=== PATIENT | female | born 1955 | race Caucasian/White ===

== ENCOUNTER 2016-08-27 07:57 | Inpatient (IN) | payer MEDICAID ==
[~2016-08-27] VITALS: Ht 175.3 cm; Wt 91.8 kg
[~2016-08-27 07:57] MED LIST: ADVAIR HFA [SP]12 GM INH; ANORO ELLIPTA1 EACH INH; ATIVAN1 MG PO; BAYER CHEWABLE81 MG PO; BREO ELLIPTA 11 EACH INH; BUMEX 1 MG TAB1 MG PO; COREG 3.1253.125 MG PO; HYDROCODONE-APA1 TAB PO; IPRAT-ALBUT 0.5-3 ML UPD; LASIX40 MG PO; LEVAQUIN500 MG PO; LEVOTHYROXINE100 MCG; LEVOTHYROXINE100 MCG PO; MIRALAX17 GM PO; MIRAPEX1 MG PO; MYCOSTATIN 15 G15 GM TOPICAL; NEURONTIN 300300 MG PO; NITROSTAT0.4 MG SL; OMEPRAZOLE40 MG PO; PERFOROMIS20 MCG/21 INH; PHENERGAN25 M1 PO; PLAVIX75 MG PO; PRAVASTATIN SOD10 MG PO; PROAIR HFA8.5 GM INH; PROTONIX40 MG PO; RESTORIL15 MG PO; STERAPRED 5MG 125 MG PO; STERAPRED DS 1210 MG PO; SYNTHROID100 MCG PO; TESSALON PERLE100 MG PO; THEOCHRON200 MG PO; ULTRAM50 MG PO; VENTOLIN HFA18 GM INH; VOLTAREN100 GM TOPICAL; ZOFRAN4 MG PO
[2016-08-27 08:31] LABS: BASOPHILS 0.2 % (0.0-2.0); EOSINOPHILS 0 % (0-7); HEMATOCRIT 41.2 % (36.0-48.0); HEMOGLOBIN 13.2 g/dL (12-16); IMMATURE GRANULOCYTES 0.4 % (0-5); LYMPHOCYTES 9.4 % (15-50); MCH 26.3 pg (26.0-34.0); MCV 82.1 fL (80.0-100.0); MEAN PLATELET VOLUME 9.9 fL (7.4-10.4); MONOCYTES 6.4 % (2-11); NEUTROPHILS 83.6 % (40-80); PLATELET COUNT 238 10x3/uL (130-400); RBC 5.02 10x6/uL (4.00-5.40); RDW 16.3 % (11.5-14.5); WBC 11.6 10x3/uL (4.8-10.8)
[2016-08-27 08:54] LABS: INR 0.96 (0.85-1.17); PROTIME 12.6 SECONDS (11.6-15.0)
[2016-08-27 08:58] LABS: ALBUMIN 3.5 g/dL (3.4-5.0); ALKALINE PHOSPHATASE 114 U/L (46-116); ALT (SGPT) 29 U/L (10-68); BILIRUBIN - TOTAL 0.21 mg/dL (0.2-1.3); CALC OSMOLALITY 285 mosm/kg (275-300); CALCIUM 9.2 mg/dL (8.5-10.1); CARBON DIOXIDE 28.2 mmol/L (21.0-32.0); CHLORIDE - SERUM 102 mmol/L (98-107); CREATININE - SERUM 0.9 mg/dL (0.6-1.3); GLUCOSE 105 mg/dL (74-106); POTASSIUM - SERUM 4.3 mmol/L (3.5-5.1); SODIUM 140 mmol/L (136-145); UREA NITROGEN 31 mg/dL (7-18); eGFR NON AFRICAN AMERICAN 67 mL/min (90-120)
[2016-08-27 09:06] LABS: CREATINE KINASE 64 UL (21-215); PRO BNP 274 pg/mL (0-125); THEOPHYLLINE 2.2 ug/mL (10.0-20.0); TROPONIN-I < 0.017 ng/mL (0.000-0.060)
[2016-08-27 11:30] LABS: APPEARANCE CLEAR (CLEAR); BILIRUBIN NEGATIVE (NEGATIVE); COLOR YELLOW (YELLOW); GLUCOSE NEGATIVE (NEGATIVE); KETONE NEGATIVE (NEGATIVE); LEUKOCYTE ESTERASE NEGATIVE (NEGATIVE); NITRITE NEGATIVE (NEGATIVE); PROTEIN NEGATIVE (NEGATIVE); SPECIFIC GRAVITY 1.015 (1.005-1.020); UROBILINOGEN NORMAL (NORMAL)
--- NOTE | 2016-08-27 15:30 | NUR ---
Pt received to room 1220 via w/c with transporter. Pt on 2L O2 via NC. Assisted to transfer to bed. Changed to wall oxygen. Pt assisted to reposition. Assessment completed per Gavi Ward RN. Tolerated assessment well. States breathing is better since updraft treatment in ER. Reports last BM at 0300 today. Pt seems SOB after transfer. Vitals collected, stable. Pt states currently with pain 7/10 across back, chronic, and across chest, states "I think it is my lungs." Denies that it feels cardiac related, states has extensive cardiac history including 5 stents. States medication given in ER, toradol, ineffective for pain control. Dry cough noted, unproductive. Pt reports that her cough has been wet and productive, yellow, but not today. Home medication list provided per patient, reviewed and verified with patient. Confirmed last doses of medications during review. Pt denies further needs at this time. Bed low, brakes on, call light in reach. Unit phone and staff names placed on board for patient reference.
--- NOTE | 2016-08-27 15:50 | NUR ---
PIV noted to R forearm. Pt states that she has been itching since getting IV ABTx in ER and that medication burned during administration.
[2016-08-27] MEDS ORDERED: HYDROCODONE-APA1 TAB PO (17:02)
[2016-08-27] MEDS ORDERED: TESSALON PERLE100 MG PO (17:03)
[2016-08-27 17:11] VITALS: BP 138/74; Ht 175.3 cm; Wt 91.8 kg
--- NOTE | 2016-08-27 17:30 | NUR ---
PATIENT GIVEN NORCO FOR C/O LOWER BACK AND RIGHT CHESTWALL PAIN. SHE STATES THAT THE PAIN IN HER RIGHT CHESTWALL SEEMS RELATED TO HER BREATHING AND SHARPENS WITH DEEP BREATHING. SHE IS CURRENTLY SITTING UP ON THE BEDSIDE WORKING ON HER COMPUTER THAT SHE HAS PLACED ON THE BEDSIDE TABLE. SHE HAS BEEN UP AMBULATING AROUND HER ROOM AND IS WITHOUT UNSTEADINESS. DENIES ANY OTHER NEEDS AND IS GLAD TO HAVE HER SUPPER DELIVERED.
--- NOTE | 2016-08-27 17:46 | NUR ---
DR CASTRO HERE. VISITS WITH PT.
--- NOTE | 2016-08-27 17:56 | NUR ---
GER, PHARMACIST CALLS. STATES PT ALLERGIES AND PULMOCORT ORDERED. DR CASTRO ON UNIT AND NOTIFIED. STATES OK FOR PT TO HAVE PULMOCORT.
[2016-08-27 19:30] VITALS: BP 150/78
--- NOTE | 2016-08-27 19:30 | NUR ---
SHIFT ASSESSMENT AND VITAL SIGNS DONE. PT UP ADJUSTING THERMOSTAT IN ROOM. STATES "I JUST CANT GET IT COMFORTABLE". PT REPORTS PAIN AT LEVEL 7 BUT DOES NOT WANT PAIN MEDS. STATES "IT IS MAINLY WHEN I COUGH". SALINE LOCK SITE PATENT. SPO2 AT 96%. OXYGEN AT 2 L/MIN VIA NC. LUNGS CLEAR. PEDAL PULSES STRONG BILATERALLY. PT DENIES ANY PROBLEMS AMBULATING TO BATHROOM. TELEMETRY UNIT IN PLACE ON CHEST. PT STATES THAT IT WAS PUT ON WHEN SHE CAME TO THE ROOM FROM ER. FRESH ICE WATER PROVIDED PER PTS REQUEST.
--- NOTE | 2016-08-27 20:15 | NUR ---
RESPIRATORY HERE FOR MEDS/TREATMENT. REPORTS THAT PT TOLERATED WELL.
--- NOTE | 2016-08-27 21:05 | NUR ---
CALL TO TELEMETRY UNIT. TECH STATES PTS TELEMETRY IS NOT CURRENTLY WORKING. TO ROOM AND BATTERIES REPLACED. CALL BACK TO CORPORATE STRATEGY ASSOCIATE. STATES PT IS AT 82 AND SINUS RHYTHM. INFORMED PT AT THIS TIME.
--- NOTE | 2016-08-27 21:49 | NUR ---
ROUTINE 2100 MEDS GIVEN AT THIS TIME. DELAYED DUE TO WAITING ON PHARMACY TO BRING TESSLON TRINIDAD MED. PT STATES "WHAT ABOUT MY REGULAR BEDTIME MEDS? I TAKE ATIVAN AND RESTLESS LEG MEDICINE TOO". INFORMED PT THAT NURSE WILL CHECK ON THESE AND LET HER KNOW DAVID.
--- NOTE | 2016-08-27 21:58 | NUR ---
ATIVAN AND MERIPEX(RESTLESS LEG) MEDS GIVEN AT THIS TIME. PT SITTING UP IN BED ON COMPUTER WITH HEADPHONES IN PLACE. DENIES ANY REQUESTS AT THIS TIME.
--- NOTE | 2016-08-27 23:06 | NUR ---
LAB HERE TO COLLECT BLOOD CULTURE.
--- NOTE | 2016-08-27 23:48 | NUR ---
RESPIRATORY HERE FOR 2300 MEDS/TREATMENTS.
[2016-08-28 00:15] VITALS: BP 127/66
--- NOTE | 2016-08-28 00:15 | NUR ---
VITAL SIGNS DONE. NOTED THAT PT DID NOT HAVE OXYGEN/NC ON WHEN NURSE ENTERED ROOM. PT STATES SHE JUST RETURNED TO BED FROM BATHROOM AND FORGOT TO PUT IT BACK ON. REPLACED AND SPO2 AT 94% AND THEN INCREASED TO 96% WITH DEEP BREATHING. FRESH ICE WATER PROVIDED AND THERMOSTAT ADJUSTED PER PTS REQUEST. NO OTHER REQUESTS AT THIS TIME.
--- NOTE | 2016-08-28 01:42 | NUR ---
SOLUMEDROL IVP GIVEN BY Anila MOREIRA RN AT THIS TIME. PT ALERT AND AWAKE WITH NO COMPLAINTS.
--- NOTE | 2016-08-28 03:15 | NUR ---
RESPIRATORY HERE FOR MEDS/TREATMENT. STATES PT TOLERATED WITH NO DIFFICULTIES NOTED.
[2016-08-28 04:15] VITALS: BP 138/80
--- NOTE | 2016-08-28 04:15 | NUR ---
VITAL SIGNS DONE. PT SITTING UP IN BED ON COMPUTER. REQUESTS PAIN MED DUE TO BACK/CHEST PAIN AT LEVEL 7. STATES THAT PAIN IS CHRONIC TYPE PAIN. NORCO 10 GIVEN AT THIS TIME. NO OTHER REQUESTS AT THIS TIME.
--- NOTE | 2016-08-28 06:05 | NUR ---
0600 MEDS GIVEN AT THIS TIME. PT REQUESTS TO BE ALLOWED TO AMBULATE TO ER. STATES "MY SON IS BRINGING MY IN TO THE EMERGENCY ROOM BECAUSE HE IS HAVING TROUBLE BREATHING". INFORMED PT IT IS OK TO LEAVE ROOM. OFFERED TO TRANSPORT PT IN WHEELCHAIR. PT STATES "NO THANK YOU. I WANT TO TRY IT ON MY OWN". PROVIDED SLIPPER SOCKS FOR AMBULATION. REMINDED PT TO NOTIFY NURSE BEFORE SHE LEAVES UNIT AND SOON SHE RETURNS. ALSO ADVISED PT THAT IF SHE NEEDS ASSISTANCE BACK FROM ER TO HAVE ER CALL WS NURSE FOR ASSISTANCE. PT DENIES ANY SHORTNESS OF BREATH AT THIS TIME.
--- NOTE | 2016-08-28 06:19 | NUR ---
PT TO NURSES DESK. STATES SHE IS GOING TO ER NOW. DIRECTED PT TO VISITOR ELEVATOR AT THIS TIME. REMINDED PT TO HAVE ER CALL IF SHE NEEDS ASSISTANCE RETURNING TO ROOM.
--- NOTE | 2016-08-28 06:45 | NUR ---
SBAR HANDOFF RECEIVED FROM Bernard TOMAS RN. PATIENT IS IN ED VISITING WHO IS BEING ADMITTED TO HOSPITAL AND SAID TO BE CRITICAL CONDITION
[2016-08-28 07:47] LABS: BASOPHILS 0.2 % (0.0-2.0); EOSINOPHILS 0 % (0-7); HEMATOCRIT 44.9 % (36.0-48.0); HEMOGLOBIN 14.3 g/dL (12-16); IMMATURE GRANULOCYTES 0.5 % (0-5); LYMPHOCYTES 8.1 % (15-50); MCHC 31.8 g/dL (31.0-37.0); MCV 81.8 fL (80.0-100.0); MEAN PLATELET VOLUME 9.8 fL (7.4-10.4); MONOCYTES 2.5 % (2-11); NEUTROPHILS 88.7 % (40-80); RBC 5.49 10x6/uL (4.00-5.40); RDW 16.3 % (11.5-14.5)
[2016-08-28 07:58] LABS: PLATELET COUNT 286 10x3/uL (130-400)
[2016-08-28 08:00] LABS: ALBUMIN 3.7 g/dL (3.4-5.0); ANION GAP 17.4 mmol/L (8-16); BILIRUBIN - TOTAL 0.21 mg/dL (0.2-1.3); CALCIUM 9.2 mg/dL (8.5-10.1); CARBON DIOXIDE 24.1 mmol/L (21.0-32.0); POTASSIUM - SERUM 4.5 mmol/L (3.5-5.1); PROTEIN - SERUM 8.4 g/dL (6.4-8.2)
--- NOTE | 2016-08-28 08:20 | NUR ---
RETURNED FROM ED IN WHEELCHAIR. ALERT AND ORIENTED X 4. SKIN WARM DRY AND PINK. O2 OFF BUT RESUMED NOW AT 2LITERS /MIN PER NASAL CANNULA. BBS= AND CTA. NO SIGNS OF RESP DISTRESS OR OTHER DISTRESS NOTED OR REPORTED. SALINE LOCK RIGHT FOREARM INTACT WITH NO SIGNS OF COMPLICATIONS
--- NOTE | 2016-08-28 09:00 | NUR ---
TO XRAY PER WC ACCOMPANIED BY XRAY PERSONNEL
--- NOTE | 2016-08-28 09:15 | NUR ---
RETURNED FROM XRAY PER WC. NO CHANGE IN CONDITION. O2 RESUMED BEFORE. FAMILY AT BEDSIDE.
--- NOTE | 2016-08-28 09:30 | NUR ---
Spoke to Emmanuelle Wagner infection control. Advised to continue with flu swab, pt states she had a flu swab 2 days ago in an emergent care clinic that was negative.
--- NOTE | 2016-08-28 10:30 | NUR ---
Dr Gaviria seeing patient.
--- NOTE | 2016-08-28 10:45 | NUR ---
Spoke to Emmanuelle Wagner with infection control. Flu A and B are negative. Pt without symptoms other than stuffy head and c/o pollen causing. Pt states she gets this every year.
--- NOTE | 2016-08-28 10:55 | NUR ---
Explain to kal that if she left the room would have to wear a mask. Good hand washing. No visiting other patients, until discharged. Pt verblized her understanding.
--- NOTE | 2016-08-28 11:48 | NUR ---
Explain SCD to patient. "I have restless legs and they really bother me". I explained I could not force her, but they are to prevent blood clots and the MD ordered them. I explained that if she is up and walking in room she does not have to, but while in bed resting or sleeping she really needs to wear them. Pt verblized her understanding and will allow. She will call after she eats and changes clothes to allow us to place them.
[2016-08-28 11:50] VITALS: BP 128/78
--- NOTE | 2016-08-28 12:25 | NUR ---
REMAINS STABLE IN ROOM. INSTRUCTED TO STAY IN ROOM. NO SIGNS OF DISTRESS
--- NOTE | 2016-08-28 13:00 | NUR ---
SCD APPLIED BLE. REMAINS STABLE IN ROOM WITH NO SIGNS OF DISTRESS.
--- NOTE | 2016-08-28 14:10 | NUR ---
DR CASTRO IS HERE TO SEE PT. NEW ORDERS NOTED. PT DOES NOT LIKE WEARING THE SCD'S. DR CASTRO STATES TO DISCONTINUE THEM AND START HER ON LOVENOX 30 MG SQ DAILY.
--- NOTE | 2016-08-28 14:15 | NUR ---
SCD SLEEVES DISCONTINUED PER MD ORDER.
--- NOTE | 2016-08-28 14:46 | NUR ---
INITIAL DOSE LOVENOX GIVEN.
--- NOTE | 2016-08-28 15:30 | NUR ---
OFFERED SHOWER. STATES SHE WANTS TO WAIT A WHILE. NO SIGNS OF RESP DISTRESS OR OTHER DISTRESS NOTED. COUGHED AFTER BREATHING TREATMENT AND NOTED CLEAR THIN PHLEGM. STATES PHLEGM WAS THICK AND YELLOW 2 DAYS AGO BUT THEN STOPPED BEING ABLE TO COUGH ANYTHING UP.
--- NOTE | 2016-08-28 16:30 | NUR ---
SHOWERED WITH IV COVERED. SANJIV FAIR. POST O2 SAT 95% AFTER HAVING O2 OFF FOR APPROX 15 MIN.
--- NOTE | 2016-08-28 17:30 | NUR ---
REMAINS STABLE WITH NO SIGNS OF RESP DISTRESS OR OTHER DISTRESS NOTED OR REPORTED. LINENS CHANGED ON BED.
--- NOTE | 2016-08-28 18:00 | NUR ---
REMAINS STABLE WITH NO SIGNS OF RESP DISTRESS OR OTHER DISTRESS NOTED OR REPORTED.
[2016-08-28 20:15] VITALS: BP 122/56
--- NOTE | 2016-08-28 20:15 | NUR ---
SHIFT ASSESSMENT/VITAL SIGNS DONE. SALINE LOCK IN LEFT FOREARM--SITE PATENT. O2 AT 2 L/MIN VIA NC. PT DENIES SHORTNESS OF BREATH. STATES SHE HAS BEEN COUGHING UP SOME PHELGM TODAY AND HAS BEEN "STUFFY". REPORTS THAT SHE HASNT HAD A BM SINCE EARLY YESTERDAY. WANTS TO TRY PRUNE JUICE FIRST THEN WILL ASK MD FOR MED IN AM IF NO RESULT. PRUNE JUICE AND FRESH ICE WATER PROVIDED PER PTS REQUEST. NO OTHER REQUESTS/COMPLAINTS AT THIS TIME.
--- NOTE | 2016-08-28 21:20 | NUR ---
RESPIRATORY HERE. 1900 MEDS/TREATMENTS PROVIDED. PT TOLERATED WELL PER RT.
--- NOTE | 2016-08-28 21:26 | NUR ---
2100 MEDS PLUS NORCO, ATIVAN, AND MIRAPEX GIVEN AT THIS TIME. PT IN PROCESS OF RT TREATMENTS. NO REQUESTS AT THIS TIME.
--- NOTE | 2016-08-28 22:30 | NUR ---
CALL TO TELEMETRY UNIT. PT AT 113, SINUS TACHYCARDIA WITH SOME PAC'S PER TECH. PT CURRENTLY SITTING UP IN BED ON COMPUTER. NO DISTRESS NOTED.
--- NOTE | 2016-08-28 23:35 | NUR ---
RESPIRATORY HERE. MEDS/TREATMENTS DONE AT THIS TIME. PT TOLERATED WITH MINIMAL AMOUNT OF COUGHING NOTED.
[2016-08-29 00:25] VITALS: BP 119/65
--- NOTE | 2016-08-29 00:25 | NUR ---
VITAL SIGNS DONE. PT LYING ON BACK WITH HOB ELEVATED. STATES SHE HAS BEEN TRYING TO SLEEP BUT CANNOT. TURNED LIGHTS OFF AND SHUT DOOR PER PTS REQUEST. NO OTHER REQUESTS/COMPLAINTS AT THIS TIME.
--- NOTE | 2016-08-29 02:00 | NUR ---
SOLUMEDROL IVP GIVEN AT THIS TIME. FLUSHED SALINE LOCK BEFORE AND AFTER MED GIVEN. FLUSHED WITHOUT DIFFICULTY. SITE PATENT. PT SITTING UP IN BED ON COMPUTER. STATES "IM GOING TO TRY TO REST IF I CAN." DENIES ANY REQUESTS AT THIS TIME.
--- NOTE | 2016-08-29 02:40 | NUR ---
RESPIRATORY HERE FOR MEDS/TREATMENTS.
[2016-08-29 04:30] VITALS: BP 138/81
--- NOTE | 2016-08-29 04:30 | NUR ---
VITAL SIGNS DONE. PT REQUESTS PAIN MED. NORCO GIVEN AT THIS TIME. FRESH ICE WATER PROVIDED. NO OTHER COMPLAINT/REQUEST AT THIS TIME.
--- NOTE | 2016-08-29 05:37 | NUR ---
LAB HERE TO DRAW AM BLOOD/LAB TESTS.
--- NOTE | 2016-08-29 06:00 | NUR ---
0600 MEDS GIVEN AT THIS TIME. PT ASLEEP BUT EASILY AROUSED. DENIES ANY REQUESTS AT THIS TIME. WILL CALL NURSE PRN.
--- NOTE | 2016-08-29 06:08 | NUR ---
RESPIRATORY HERE. 0700 MEDS/TREATMENTS DONE AT THIS TIME.
[2016-08-29 06:45] LABS: BASOPHILS 0.2 % (0.0-2.0); EOSINOPHILS 0 % (0-7); HEMATOCRIT 38.6 % (36.0-48.0); HEMOGLOBIN 12.2 g/dL (12-16); IMMATURE GRANULOCYTES 0.5 % (0-5); LYMPHOCYTES 9.4 % (15-50); MCHC 31.6 g/dL (31.0-37.0); MCV 82.3 fL (80.0-100.0); MONOCYTES 3.4 % (2-11); NEUTROPHILS 86.5 % (40-80); PLATELET COUNT 246 10x3/uL (130-400); RBC 4.69 10x6/uL (4.00-5.40); RDW 16.4 % (11.5-14.5); WBC 14.8 10x3/uL (4.8-10.8)
[2016-08-29 07:06] LABS: ALBUMIN 3.1 g/dL (3.4-5.0); ANION GAP 11.9 mmol/L (8-16); BILIRUBIN - TOTAL 0.2 mg/dL (0.2-1.3); CALCIUM 8.8 mg/dL (8.5-10.1); CARBON DIOXIDE 27.5 mmol/L (21.0-32.0); CREATININE - SERUM 1.2 mg/dL (0.6-1.3); POTASSIUM - SERUM 4.4 mmol/L (3.5-5.1); PROTEIN - SERUM 6.8 g/dL (6.4-8.2)
--- NOTE | 2016-08-29 07:40 | NUR ---
RECEIVED IN BED. AWAKE. RESP NON-LABORED. AUSCULTATED LUNGS. ABD SOFT +BS X4 QUAD. PT C/O" MILD" PAIN. RATES AT 5/10. STATES SHE DOES NOT WANT TO TAKE PAIN MED YET AND WILL LET US KNOW WHEN NEEDED.
[2016-08-29 07:50] VITALS: BP 137/75
--- NOTE | 2016-08-29 09:48 | NUR ---
SITTING ON SIDE OF BED. WATCHING VIDEO ON COMPUTER. DENIES PROBLEMS AT THIS TIME. O2 ON AT 2 L/MIN.
--- NOTE | 2016-08-29 11:12 | NUR ---
PT RESTING ON BED. C/ O SORENESS TO TOP OF LT FOOT.
[2016-08-29] MEDS ORDERED: BROVANA15 MCG/2 M INH (11:59)
[2016-08-29] MEDS ORDERED: MUCINEX DM ER1 EAC1 PO (12:00)
[2016-08-29] MEDS ORDERED: IPRAT-ALBUT 0.5-3 ML UPD (12:00)
[2016-08-29] MEDS ORDERED: FLORAJEN3 CAPS460 MG PO (12:01)
[2016-08-29] MEDS ORDERED: STERAPRED DS 1210 MG PO (12:02)
[2016-08-29] MEDS ORDERED: LEVAQUIN750 MG PO (12:02)
--- NOTE | 2016-08-29 12:47 | NUR ---
PATIENT AMBULATING IN THE HALLWAY ON ROOM AIR. HER O2 SAT IS 86%. SHE RETURNED TO HER ROOM AND PUT ON HER O2 ON PER NC @ 2LPM AND HER SAT INCREASED TO 94% WITHIN A FEW BREATHS. CASE MANAGEMENT NOTIFIED OF THESE MEASUREMENTS. SHE STATE SHTAT THE PATIENT WILL NEED A BLOOD GAS TO QUALIFY.
[2016-08-29 14:00] VITALS: BP 143/93
--- NOTE | 2016-08-29 14:34 | NUR ---
Is the patient Alert and Oriented? Yes 0 * How many steps to enter\exit or inside your home? 0 0 * PCP DR. WILKINSON 0 * Pharmacy [facility] IN [place] 0 * Preadmission Environment Home with Family 0 * ADLs Independent 0 * Equipment Shower Chair Walker 0 * List name and contact numbers for known caregivers / representatives who currently or will assist patient after discharge: SON: SHANTEL CLEMENT [phone] 0 * Community resources currently utilized None 0 * Additional services required to return to the preadmission environment? No 0 * Can the patient safely return to the preadmission environment? Yes 0 * Has this patient been hospitalized within the prior 30 days at any hospital? No PATIENT STATES SHE LIVES AT HOME WITH HER SPOUSE, SARA CLEMENT. HE IS CURRENTLY A PATIENT IN THE HOSPITAL. PATIENT STATES SHE IS INDEPENDENT IN ALL ADL'S. PATIENT'S PCP IS DR. WILKINSON BUT SHE SEES KENY GALLARDO APN. PATIENT GETS HER MEDS FROM [facility] IN [place]. SHE STATES SHE HAS A SHOWER CHAIR AND WALKER. PATIENT HAD [employer] IN THE PAST. SHE STATES THERE ARE NO STEPS TO ENTER HER HOME. PATIENT HAD ORDER FOR O2. PATIENT HAS MEDICAID AND DID NOT QUALIFY BY [facility]G WITH PO2 60 ON ROOM AIR.
--- NOTE | 2016-08-29 15:12 | NUR ---
D/C INSTRUCTIONS GIVEN AND EXPLAINED TO PT. D/C VIA W/C. SON WITH PT. RX ELECT TRANSFERED INTO [facility]. PT RESPONDS APPROP. QUESTIONS ANSWERED.
--- NOTE | 2016-08-30 13:49 | CN ---
PATIENT NAME:MO ROBIN MEDICAL RECORD: [id number] : 55 LOCATION:[facility]1220 ADMIT DATE: 08/27/16 ACCOUNT: [id number] CONSULTING PHYSICIAN: ELIZABETH CASTRO MD REFERRING PHYSICIAN: MATT BLACKMAN MD DATE OF CONSULTATION: 08/27/2016 CONSULT REQUESTING PHYSICIAN: Matt Blackman MD REASON FOR CONSULTATION: Acute exacerbation of chronic obstructive pulmonary disease, cough, wheezing. HISTORY OF PRESENT ILLNESS: Ms. Robin is a 61-year-old female who has a history of COPD. According to the patient, her was sick and then for the last 2 days, she started coughing, wheezing and shortness of breath. She had generalized body ache and pain. The cough is productive with a white yellow colored sputum production. She was also hearing herself wheezing. The home medications were not helping. REVIEW OF SYSTEMS: CONSTITUTIONAL: She had generalized body aches and pain. HEENT: Sinus congestion. RESPIRATORY: As in history of present illness. CARDIOVASCULAR: Negative. GASTROINTESTINAL: No nausea, vomiting or diarrhea. GENITOURINARY: Negative. Other review of the systems is negative. PAST MEDICAL HISTORY: 1. COPD. 2. Obstructive sleep apnea. 3. Gastroesophageal reflux disease. 4. Hypertension. 5. Hypercholesterolemia. PAST SURGICAL HISTORY: 1. Cholecystectomy. 2. Appendectomy. 3. Hysterectomy. ALLERGIES: SHE IS ALLERGIC TO MORPHINE, OXYCODONE AND FENTANYL. PERSONAL AND SOCIAL HISTORY: The patient is . She lives with her . She is an ex-smoker. She is a nondrinker. FAMILY HISTORY: The is still everyday smoker. Family history is noncontributory. PHYSICAL EXAMINATION: GENERAL: Now, the patient is lying comfortably in bed. She is not in acute distress. VITAL SIGNS: The blood pressure 138/74, pulse is 94, respiration is 18, temperature 97.9, SPO2 of 97% on 2 liters nasal cannula oxygen. HEENT: Conjunctivae are pink. Sclerae are nonicteric. NECK: Supple, no JVD. CONSULT REPORT [id number] MO ROBIN CHEST: There is prolonged expiration with wheezing, no crackles. HEART: Rhythm regular, normal sound, no murmur. ABDOMEN: Soft, bowel sounds present. No hepatosplenomegaly. RECTAL: Deferred. EXTREMITIES: No cyanosis, no clubbing, no pedal edema. SKIN: Warm, normal turgor. CENTRAL NERVOUS SYSTEM: The patient is awake and alert. There are no obvious cranial nerve abnormality. The gait was not tested. IMPRESSION: 1. Acute exacerbation of chronic obstructive pulmonary disease. 2. Acute tracheobronchitis. 3. Acute cough. 4. History of obstructive sleep apnea. 5. Gastroesophageal reflux disease. 6. Coronary artery disease. RECOMMENDATION: 1. Continue methylprednisolone IV, continue Levaquin, albuterol/ipratropium nebulizer, and start her on Brovana and budesonide nebulizer. 2. Mucinex DM. 3. Follow up labs and chest radiograph in the morning. Dr. Blackman, once again thanks for involving me in the care of Ms. Robin. TRANSINT:[id number] Voice Confirmation ID: [id number] DOCUMENT ID: [id number] ELIZABETH CASTRO MD at 1349 CC: MATT BLACKMAN MD [id number] DICTATION DATE: 08/27/161752 ELEMENTARY SPANISH TEACHER: 08/27/16 2300 DIS IN 08/29/16 [facility] [address] [place] [address]
== END 2016-08-29 15:12 | disposition home or self-care (01) | DRG 190 ==
LOC: D.ER 07:57 → D.WS 15:10
PROVIDERS: Emergency Medicine; ADMIT Family Medicine
DX: J44.1 Chronic obstructive pulmonary disease with (acute) exacerbation (principal); J18.1 Lobar pneumonia, unspecified organism; I11.0 Hypertensive heart disease with heart failure; I50.9 Heart failure, unspecified; G47.33 Obstructive sleep apnea (adult) (pediatric); K21.9 Gastro-esophageal reflux disease without esophagitis; G89.29 Other chronic pain; M19.90 Unspecified osteoarthritis, unspecified site; J30.9 Allergic rhinitis, unspecified; E03.9 Hypothyroidism, unspecified; I25.10 Atherosclerotic heart disease of native coronary artery without angina pectoris

== ENCOUNTER 2016-11-11 15:38 | Inpatient (IN) | payer MEDICAID ==
[~2016-11-11] VITALS: Ht 175.3 cm; Wt 97.6 kg
[~2016-11-11 15:38] MED LIST changes: +BROVANA15 MCG/2 M INH; +FLORAJEN3 CAPS460 MG PO; +LEVAQUIN750 MG PO; +MUCINEX DM ER1 EAC1 PO
[2016-11-11 16:05] LABS: APPEARANCE CLEAR (CLEAR); BILIRUBIN NEGATIVE (NEGATIVE); COLOR YELLOW (YELLOW); GLUCOSE NEGATIVE (NEGATIVE); KETONE NEGATIVE (NEGATIVE); LEUKOCYTE ESTERASE NEGATIVE (NEGATIVE); NITRITE NEGATIVE (NEGATIVE); PROTEIN NEGATIVE (NEGATIVE); UROBILINOGEN NORMAL (NORMAL)
[2016-11-11 16:25] LABS: BASOPHILS 0.3 % (0-2); EOSINOPHILS 1.1 % (0-7); HEMOGLOBIN 13.1 g/dL (12-16); IMMATURE GRANULOCYTES 0.3 % (0-5); LYMPHOCYTES 17.8 % (15-50); MCH 25.8 pg (26.0-34.0); MCV 80.9 fL (80.0-100.0); MEAN PLATELET VOLUME 9.7 fL (7.4-10.4); MONOCYTES 4.6 % (2-11); NEUTROPHILS 75.9 % (40-80); PLATELET COUNT 265 10x3/uL (130-400); RBC 5.07 10x6/uL (4.00-5.40); RDW 17.5 % (11.5-14.5)
[2016-11-11 16:56] LABS: ALBUMIN 3.6 g/dL (3.4-5.0); ANION GAP 11.2 mmol/L (8-16); BILIRUBIN - TOTAL 0.29 mg/dL (0.2-1.3); CALCIUM 9.2 mg/dL (8.5-10.1); CARBON DIOXIDE 29.7 mmol/L (21.0-32.0); POTASSIUM - SERUM 3.9 mmol/L (3.5-5.1); PROTEIN - SERUM 7.7 g/dL (6.4-8.2)
[2016-11-11] MEDS ORDERED: THEOCHRON200 MG PO (20:19)
--- NOTE | 2016-11-11 20:59 | NUR ---
RECEIVED PT TO ROOM VIA STRETCHER. ALERT AND ORIENTED. C/O PAIN 01/16 TO ABD. PRN DILAUDID GIVEN. ORDERED LEVAQUIN GIVEN. ORIENTED TO ROOM AND USE OF CALL LIGHT. DENIES ANY OTHER NEEDS AT THIS TIME. BED LOW. CALL LIGHT IN REACH
[2016-11-12] VITALS: BP 122/62
--- NOTE | 2016-11-12 01:43 | NUR ---
PT C/O PAIN 03/18 TO ABD. PRN DILAUDID GIVEN ORDERED. NO OTHER NEEDS VOICED AT THIS TIME.
[2016-11-12 05:00] VITALS: BP 134/77; BMI 30.5
--- NOTE | 2016-11-12 05:19 | NUR ---
PT C/O NAUSEA. ORDER RECEIVED FOR ZOFRAN PRN. GIVEN ORDERED.
--- NOTE | 2016-11-12 07:40 | NUR ---
PATIENT RECEIVED SITTING UP ON SIDE OF BED ALERT. NO SIGNS OF DISTRESS NOTED. C/O PAIN 11/16 TO ABD. REQUESTING COFFEE. AT BEDSIDE. NO FURTHER NEEDS VOICED. SIDE RAILS UP X2. BED IN LOW POSITION. CALL LIGHT IN REACH.
[2016-11-12 09:03] VITALS: BP 107/64
[2016-11-12 10:04] LABS: BASOPHILS 0.1 % (0-2); EOSINOPHILS 0.8 % (0-7); HEMATOCRIT 37.3 % (36.0-48.0); HEMOGLOBIN 11.8 g/dL (12-16); IMMATURE GRANULOCYTES 0.3 % (0-5); MCH 25.7 pg (26.0-34.0); MCHC 31.6 g/dL (31.0-37.0); MCV 81.1 fL (80.0-100.0); MEAN PLATELET VOLUME 9.8 fL (7.4-10.4); MONOCYTES 5.3 % (2-11); NEUTROPHILS 82.5 % (40-80); PLATELET COUNT 226 10x3/uL (130-400); RDW 17.5 % (11.5-14.5); WBC 14.7 10x3/uL (4.8-10.8)
--- NOTE | 2016-11-12 10:10 | NUR ---
ALERT IN BED. NO SIGNS OF DISTRESS NOTED. C/O PAIN 01/16. DILAUDID ADMINISTERED PER PRN ORDER. WELL TOLERATED. DENIES FURTHER NEEDS. SIDE RAILS UP X2. BED IN LOW POSITION. CALL LIGHT IN REACH. FAMILY PRESENT.
[2016-11-12 10:13] LABS: ALBUMIN 2.7 g/dL (3.4-5.0); ANION GAP 10.1 mmol/L (8-16); BILIRUBIN - TOTAL 0.47 mg/dL (0.2-1.3); CALCIUM 8.3 mg/dL (8.5-10.1); POTASSIUM - SERUM 4.1 mmol/L (3.5-5.1); PROTEIN - SERUM 6.2 g/dL (6.4-8.2)
[2016-11-12 10:20] VITALS: Ht 175.3 cm; Wt 97.6 kg
--- NOTE | 2016-11-12 10:51 | NUR ---
ALERT IN BED. RATES PAIN 12/16. SCDS ON BILATERALLY. DENIES NEEDS. SIDE RAILS UP X2. BED IN LOW POSITION. CALL LIGHT IN REACH.
[2016-11-12 12:39] VITALS: BP 99/57
--- NOTE | 2016-11-12 12:59 | NUR ---
IV TO RIGHT WRIST RED AND SWOLLEN. IV D/C WITH CATH TIP INTACT. SITE COVERED WITH GAUZE AND BANDAID. PATIENT WANTS TO SHOWER FIRST THEN WILL RESITE
--- NOTE | 2016-11-12 13:47 | NUR ---
22 GAUGE IV SITED TO RIGHT FOREARM X1 ATTEMPT. FLUSHES EASY WITH BRISK BLOOD RETURN. SECURED WITH TAPE AND TEGADERM. WELL TOLERATED.
--- NOTE | 2016-11-12 14:56 | NUR ---
ALERT IN BED. RATES PAIN 12/16. SCHEDULED DILAUDID 0.5MG ADMINISTERED SLOW IVP. WELL TOLERATED. DENIES NEEDS. SIDE RAILS UP X2. BED IN LOW POSITION. CALL LIGHT IN REACH.
--- NOTE | 2016-11-12 15:08 | NUR ---
* Is the patient Alert and Oriented? Yes 0 * How many steps to enter\exit or inside your home? 0 0 * PCP [facility] 0 * [facility]acy [facility] 0 * Preadmission Environment Home with Family 0 * ADLs Independent 0 * List name and contact numbers for known caregivers / representatives who currently or will assist patient after discharge: JOSE ALFREDO ROBIN (SPOUSE) [phone] 0 * Community resources currently utilized None 0 * Additional services required to return to the preadmission environment? No 0 * Can the patient safely return to the preadmission environment? Yes 0 * Has this patient been hospitalized within the prior 30 days at any hospital? No 0 Grand Total: 0 Patient Name: MO ROBIN Admission Status: ER Accout number: [id number] Admission Date: 11-11-2016 : 1955 Admission Diagnosis: Attending: MARTHA Current LOS: 1 Anticipated DC Date: 11-14-2016 Planned Disposition: Home Primary Insurance: MEDICAID [place] Discharge Planning Comments: CM met with patient to assess discharge planning/needs. Patient currently lives at home with her (Jose Alfredo) who will drive her home. She states she is independent at home. She uses a nebulizer at home. Patient denies any HH needs at this time. CM will continue to follow and assist as needed. PCP: [facility]acy: [facility] Jose Alfredo Robin (Spouse) [phone] Traveling Phlebotomist: Jacinta Roque
--- NOTE | 2016-11-12 16:17 | NUR ---
C/O HEADACHE. TYLENOL PER PRN ORDER.
--- NOTE | 2016-11-12 17:48 | NUR ---
STATES HEADACHE IS BETTER. PAIN TO ABD /10. DILAUDID PER ORDERS. STATES NO BM. PRUNE JUICE SPRITZER PROVIDED. NO FURTHER NEEDS VOICED. SIDE RAILS UP X2. BED IN LOW POSITION. CALL LIGHT IN REACH.
[2016-11-12 20:00] VITALS: BP 131/53
--- NOTE | 2016-11-12 20:10 | NUR ---
PATIENT RESTING IN BED WITH C/O 8/10 PAIN. I EXPLAINED TO THE PATIENT THAT SHE CAN HAVE PAIN MEDICATION AGAIN AT 2100. THE PATIENT VERBALIZED UNDERSTANDING. PATIENT'S BED IS IN THE LOWEST POSITION AND CALL LIGHT WITHIN REACH. ENCOURAGED THE PATIENT TO CALL IF SHE HAS FURTHER NEEDS.
[2016-11-13 04:00] VITALS: BP 116/66
[2016-11-13 06:05] LABS: BASOPHILS 0.1 % (0-2); EOSINOPHILS 0.8 % (0-7); HEMATOCRIT 36.7 % (36.0-48.0); HEMOGLOBIN 11.4 g/dL (12-16); IMMATURE GRANULOCYTES 0.3 % (0-5); LYMPHOCYTES 13.8 % (15-50); MCH 25.5 pg (26.0-34.0); MCHC 31.1 g/dL (31.0-37.0); MCV 82.1 fL (80.0-100.0); MONOCYTES 5.6 % (2-11); NEUTROPHILS 79.4 % (40-80); PLATELET COUNT 238 10x3/uL (130-400); RBC 4.47 10x6/uL (4.00-5.40); RDW 17.6 % (11.5-14.5); WBC 11.9 10x3/uL (4.8-10.8)
[2016-11-13 06:33] LABS: ALBUMIN 2.8 g/dL (3.4-5.0); ANION GAP 9.6 mmol/L (8-16); BILIRUBIN - TOTAL 0.36 mg/dL (0.2-1.3); CALCIUM 8.6 mg/dL (8.5-10.1); CARBON DIOXIDE 29.5 mmol/L (21.0-32.0); POTASSIUM - SERUM 4.1 mmol/L (3.5-5.1); PROTEIN - SERUM 6.5 g/dL (6.4-8.2)
--- NOTE | 2016-11-13 07:00 | NUR ---
PT REC'D FROM [facility]. SITTING UP IN BED ON COMPUTER. DAUGHTER AT BEDSIDE. AAOX4. RATING CURRENT PAIN IN ABD 6/10, BUT STATES THAT SHE IS TRYING NOT TO TAKE PAIN MEDS UNLESS IT IS A 7 OR HIGHER. EXPLAINED TO PT TO NOT LET IT GET TOO HIGH OR WE'LL HAVE TO PLAY CATCH UP. BOWEL SOUNDS HYPOACTIVE X4 QUADRANTS. BED LOW, CALL LIGHT IN REACH, DENIES NEEDS. CPOC.
--- NOTE | 2016-11-13 07:45 | NUR ---
PATIENT IS AWAKE, ALERT AND ORIENTED X'S 4. RESPIRATIONS ARE EVEN AND UNLABORED. NO SIGNS OF DISTRESS NOTED. BED IN LOWEST POSITION, CALL LIGHT IN REACH. PATIENT IS SITTING ON THE SIDE OF THE BED PLAYING ON HER LAPTOP.
--- NOTE | 2016-11-13 08:49 | NUR ---
MORNING MEDS PASSED AT THIS TIME. 0.5MG OF DILAUDID ADMINISTERED PER MAR. PAIN IN ABD CURRENTLY 12/16. AT BEDSIDE. BED LOW, CALL LIGHT IN REACH, DENIES NEEDS. CPOC.
[2016-11-13 08:59] VITALS: BP 109/56
[2016-11-13 13:22] VITALS: BP 103/66
[2016-11-13 16:29] VITALS: BP 120/64
[2016-11-13 20:00] VITALS: BP 108/63
--- NOTE | 2016-11-13 20:41 | NUR ---
PATIENT RESTING IN BED AND REQUESTED ATIVAN WITH HER NIGHT MEDS. PATIENT DENIES OTHER NEEDS AT THIS TIME. BED IN LOWEST POSITION AND CALL LIGHT WITHIN REACH. ENCOURAGED THE PATIENT TO CALL IF SHE HAS FURTHER NEEDS.
[2016-11-14 04:00] VITALS: BP 104/58
[2016-11-14 05:52] LABS: BASOPHILS 0.1 % (0-2); EOSINOPHILS 2.2 % (0-7); HEMATOCRIT 36.8 % (36.0-48.0); HEMOGLOBIN 11.4 g/dL (12-16); IMMATURE GRANULOCYTES 0.4 % (0-5); LYMPHOCYTES 16.6 % (15-50); MCH 25.6 pg (26.0-34.0); MCV 82.5 fL (80.0-100.0); MEAN PLATELET VOLUME 9.9 fL (7.4-10.4); MONOCYTES 5.2 % (2-11); NEUTROPHILS 75.5 % (40-80); PLATELET COUNT 235 10x3/uL (130-400); RBC 4.46 10x6/uL (4.00-5.40); RDW 17.5 % (11.5-14.5)
[2016-11-14 06:31] LABS: ALBUMIN 2.9 g/dL (3.4-5.0); ANION GAP 11.8 mmol/L (8-16); BILIRUBIN - TOTAL 0.4 mg/dL (0.2-1.3); CALCIUM 8.8 mg/dL (8.5-10.1); CARBON DIOXIDE 29.6 mmol/L (21.0-32.0); POTASSIUM - SERUM 4.4 mmol/L (3.5-5.1); PROTEIN - SERUM 6.6 g/dL (6.4-8.2)
--- NOTE | 2016-11-14 07:30 | NUR ---
PATIENT IS SITTING UP IN HER BED. PATIENT IS AWAKE, ALERT, AND ORIENTED X4. PATIENT CURRENTLY RECEIVING A BREATHING TREATMENT WITH RT IN HER ROOM. PATIENT RATES HER PAIN LEVEL A "5" ON A 0-10 SCALE. PATIENT DENEIS ANY NAUSEA OR VOMITING AT PRESENT TIME. IV SITE PATENT WITHOUT ANY S/S OF INFECTION IN PATIENT'S RIGHT FOREARM. SCD'S IN USE TO PATIENT'S BILATERAL LOWER EXTREMITIES. PATIENT DENIES ANY NEEDS AT PRESENT TIME. CALL LIGHT IN PATIENT'S REACH. WILL MONITOR PATIENT.
[2016-11-14 08:08] VITALS: BP 79/47
--- NOTE | 2016-11-14 08:35 | NUR ---
PT STATED HER BLOOD PRESSURE WAS LOW THIS AM, "MY BLOOD PRESSURE WAS IN THE 70'S OVER THE 40'S AND I FEEL SLEEPY AND GROGGY." RECHECKED AND GOT NEW BP OF 117/56. PT IS AAOX4. WITH CURRENT PAIN LEVEL OF 8/10 IN HER ABD. WILL REASSES AFTER GIVING SCHEDULED DILAUDID PER AUG.
[2016-11-14 12:25] VITALS: BP 110/62
--- NOTE | 2016-11-14 12:46 | NUR ---
NUTRITION MONITORING & EVAL CHART REVIEWED, PT VISIT. DIET NOW CLEAR LIQUID. WILL PROVIDE CURRENT DIET, MONITOR ADVANCEMENT. RD FOLLOWING
[2016-11-14 16:59] VITALS: BP 118/66
[2016-11-14 20:00] VITALS: BP 133/70
--- NOTE | 2016-11-14 20:00 | NUR ---
ASSESSMENT COMPLETED, NO ACUTE DISTRESS NOTED, SPOUSE IN ROOM, R FA IV SALINE LOCKED, REFUSES SCD'S, SR'S UP, CL IN REACH, WILL MONITOR
--- NOTE | 2016-11-14 22:02 | NUR ---
SITTING UP IN BED ON COMPUTER, DENIES NEEDS, SR'S UP, CL IN REACH
--- NOTE | 2016-11-15 00:04 | NUR ---
SCHEDULED DILAUDID GIVEN, RATES PAIN 8/10, SANJIV WELL, CL IN REACH
[2016-11-15 04:00] VITALS: BP 97/55
[2016-11-15 05:58] LABS: BASOPHILS 0.2 % (0-2); EOSINOPHILS 2.4 % (0-7); HEMATOCRIT 37.2 % (36.0-48.0); HEMOGLOBIN 11.5 g/dL (12-16); IMMATURE GRANULOCYTES 0.2 % (0-5); LYMPHOCYTES 14.4 % (15-50); MCH 25.7 pg (26.0-34.0); MCHC 30.9 g/dL (31.0-37.0); MONOCYTES 4.7 % (2-11); NEUTROPHILS 78.1 % (40-80); PLATELET COUNT 259 10x3/uL (130-400); RBC 4.48 10x6/uL (4.00-5.40); RDW 17.7 % (11.5-14.5); WBC 10.5 10x3/uL (4.8-10.8)
[2016-11-15 07:08] LABS: ALBUMIN 2.8 g/dL (3.4-5.0); ANION GAP 11.9 mmol/L (8-16); BILIRUBIN - TOTAL 0.2 mg/dL (0.2-1.3); CALCIUM 8.9 mg/dL (8.5-10.1); CARBON DIOXIDE 29.6 mmol/L (21.0-32.0); POTASSIUM - SERUM 4.5 mmol/L (3.5-5.1); PROTEIN - SERUM 6.4 g/dL (6.4-8.2)
--- NOTE | 2016-11-15 07:20 | NUR ---
PATIENT RECEIVED UP AMBULATING IN ROOM WITHOUT ASSIST. NO SIGNS OF DISTRESS NOTED. FAMILY AT BEDSIDE. DENIES NEEDS.
--- NOTE | 2016-11-15 08:07 | NUR ---
PATIENT SITTING UP ON SIDE OF BED ALERT. NO SIGNS OF DISTRESS NOTED. SCHEDULED MEDICATION ADMINISTERED WELL PRN ZOFRAN. IV TO RIGHT FOREARM PATENT. NO INFLAMMATION OR REDNESS NOTED. SIDE RAILS UP X2. BED IN LOW POSITION. CALL LIGHT IN REACH.
[2016-11-15 08:16] VITALS: BP 116/63
--- NOTE | 2016-11-15 10:00 | NUR ---
ALERT IN BED. CONTINUE TO C/O NAUSEA. IM PHENERGAN PER PRN ORDER. NO FURTHER NEEDS VOICED. SIDE RAILS UP X2. BED IN LOW POSITION. CALL LIGHT IN REACH.
--- NOTE | 2016-11-15 12:08 | NUR ---
SITTING UP ON SIDE OF BED ALERT. NO SIGNS OF DISTRESS NOTED. SCHEDULED MEDICATION ADMINISTERED. WANTING TO GO HOME. BED IN LOW POSITION. CALL LIGHT IN REACH. AT BEDSIDE.
[2016-11-15 12:37] VITALS: BP 91/49
--- NOTE | 2016-11-15 16:00 | NUR ---
SITTING UP ON SIDE OF BED ALERT. NO SIGNS OF DISTRESS NOTED. SCHEDULED DILAUDID ADMINISTERED. DENIES NEEDS. SIDE RAILS UP X2. BED IN LOW POSITION. CALL LIGHT IN REACH.
[2016-11-15 16:48] VITALS: BP 110/64
[2016-11-15 20:00] VITALS: BP 111/57
--- NOTE | 2016-11-15 20:20 | NUR ---
PATIENT RESTING IN BED ON THE PHONE AND REQUESTED PAIN MEDICATION. BED IN LOWEST POSITION AND CALL LIGHT WITHIN REACH. ENCOURAGED THE PATIENT TO CALL IF SHE HAS FURTHER NEEDS.
[2016-11-16] VITALS: BP 126/60
[2016-11-16] MEDS ORDERED: BUMEX 1 MG TAB1 MG PO (02:11)
[2016-11-16 04:00] VITALS: BP 131/56
[2016-11-16 06:52] LABS: BASOPHILS 0.2 % (0-2); EOSINOPHILS 3.8 % (0-7); HEMATOCRIT 36.4 % (36.0-48.0); HEMOGLOBIN 11.2 g/dL (12-16); IMMATURE GRANULOCYTES 0.3 % (0-5); MCH 25.6 pg (26.0-34.0); MCHC 30.8 g/dL (31.0-37.0); MCV 83.3 fL (80.0-100.0); MEAN PLATELET VOLUME 9.8 fL (7.4-10.4); MONOCYTES 5.2 % (2-11); NEUTROPHILS 73.5 % (40-80); PLATELET COUNT 273 10x3/uL (130-400); RBC 4.37 10x6/uL (4.00-5.40); RDW 17.9 % (11.5-14.5); WBC 10.5 10x3/uL (4.8-10.8)
[2016-11-16 07:06] LABS: ALBUMIN 2.9 g/dL (3.4-5.0); ANION GAP 7.4 mmol/L (8-16); BILIRUBIN - TOTAL 0.2 mg/dL (0.2-1.3); CALCIUM 8.5 mg/dL (8.5-10.1); CARBON DIOXIDE 32.8 mmol/L (21.0-32.0); POTASSIUM - SERUM 4.2 mmol/L (3.5-5.1); PROTEIN - SERUM 6.4 g/dL (6.4-8.2)
--- NOTE | 2016-11-16 07:20 | NUR ---
PATIENT RECEIVED SITTING UP IN BED ALERT. NO SIGNS OF DISTRESS NOTED. C/O PAIN 01/16. FAMILY AT BEDSIDE. SIDE RAILS UP X2. BED IN LOW POSITION. CALL LIGHT IN REACH.
--- NOTE | 2016-11-16 08:24 | NUR ---
ALERT IN BED. NO SIGNS OF DISTRESS NOTED. SCHEDULED MEDICATION ADMINISTERED. SIDE RAILS UP X2. BED IN LOW POSITION. CALL LIGHT IN REACH. DENIES NEEDS.
[2016-11-16 08:38] VITALS: BP 112/51
--- NOTE | 2016-11-16 10:49 | NUR ---
SITTING UP ON SIDE OF BED ALERT. NO SIGNS OF DISTRESS NOTED. WANTING TO GO HOME. STATES SHE DID OKAY WITH BREAKFAST. DENIES NAUSEA. SIDE RAILS UP X1. BED IN LOW POSITION. CALL MALIK CARVALHO. FAMILY PRESENT.
[2016-11-16] MEDS ORDERED: Levaquin PO (12:06)
[2016-11-16] MEDS ORDERED: FLAGYL500 MG PO (12:07)
[2016-11-16] MEDS ORDERED: ZOFRAN4 MG PO (12:08)
[2016-11-16] MEDS ORDERED: HYDROCODONE-APA1 TAB PO (12:09)
[2016-11-16 12:13] VITALS: BP 96/77
--- NOTE | 2016-11-16 13:55 | NUR ---
PATIENT SITTING UP ON SIDE OF BED ALERT. DENIES NAUSEA, BUT STATES ABDOMINAL PAIN IS WORSE AND SHE DOESN'T BELIEVE SHE NEEDS TO GO HOME TODAY. DR TRAN NOTIFIED. ORDER TO HOLD D/C AND NEW MEDICATION ORDERS RECEIVED.
--- NOTE | 2016-11-16 14:22 | NUR ---
SITTING UP ON SIDE OF BED ALERT WITH FAMILY PRESENT. NORCO AND MOM GIVEN PER PRN ORDER. NO FURTHER NEEDS VOICED. BED IN LOW POSITION. CALL LIGHT IN REACH.
[2016-11-16 20:00] VITALS: BP 99/50
[2016-11-17] VITALS: BP 95/54
[2016-11-17 04:00] VITALS: BP 119/61
[2016-11-17 05:07] LABS: BASOPHILS 0.2 % (0-2); HEMATOCRIT 37.8 % (36.0-48.0); HEMOGLOBIN 11.6 g/dL (12-16); IMMATURE GRANULOCYTES 0.4 % (0-5); LYMPHOCYTES 19.5 % (15-50); MCH 25.4 pg (26.0-34.0); MCHC 30.7 g/dL (31.0-37.0); MCV 82.7 fL (80.0-100.0); MEAN PLATELET VOLUME 9.6 fL (7.4-10.4); MONOCYTES 5.1 % (2-11); NEUTROPHILS 71.8 % (40-80); PLATELET COUNT 273 10x3/uL (130-400); RBC 4.57 10x6/uL (4.00-5.40); RDW 17.9 % (11.5-14.5); WBC 9.3 10x3/uL (4.8-10.8)
[2016-11-17 05:27] LABS: ANION GAP 7.4 mmol/L (8-16); BILIRUBIN - TOTAL 0.2 mg/dL (0.2-1.3); CALCIUM 8.7 mg/dL (8.5-10.1); CARBON DIOXIDE 34.2 mmol/L (21.0-32.0); CREATININE - SERUM 1.3 mg/dL (0.6-1.3); POTASSIUM - SERUM 3.6 mmol/L (3.5-5.1); PROTEIN - SERUM 6.6 g/dL (6.4-8.2)
--- NOTE | 2016-11-17 07:20 | NUR ---
PATIENT RECEIVED UP AMBULATING IN ROOM. NO SIGNS OF DISTRESS NOTED. READY TO D/C HOME. DENIES NEEDS. CALL LIGHT IN REACH. BED IN LOW POSITION.
[2016-11-17 07:50] VITALS: BP 106/77
--- NOTE | 2016-11-17 08:00 | NUR ---
D/C TEACHING PROVIDED AND PAPER PRESCRIPTION PROVIDED. IV D/C WITH CATH TIP INTACT. SITE COVERED WITH GAUZE AND BANDAID. AMBULATED OFF UNIT WITH STAFF AND
== END 2016-11-17 08:10 | disposition home or self-care (01) | DRG 392 ==
LOC: D.ER 15:38 → D.MS 18:38
PROVIDERS: Emergency Medicine; ADMIT Family Medicine
DX: K57.92 Diverticulitis of intestine, part unspecified, without perforation or abscess without bleeding (principal); J44.9 Chronic obstructive pulmonary disease, unspecified; I25.10 Atherosclerotic heart disease of native coronary artery without angina pectoris; I10 Essential (primary) hypertension; G89.29 Other chronic pain; M19.90 Unspecified osteoarthritis, unspecified site; E03.9 Hypothyroidism, unspecified; M79.7 Fibromyalgia; I50.9 Heart failure, unspecified; Z95.5 Presence of coronary angioplasty implant and graft; F32.9 Major depressive disorder, single episode, unspecified; F41.9 Anxiety disorder, unspecified; Z87.891 Personal history of nicotine dependence

== ENCOUNTER → 2016-12-24 09:31 | Outpatient (CLI) | payer MEDICAID ==
[2016-11-12 10:20] VITALS: BMI 30.4
[~2016-12-24 09:31] MED LIST changes: +FLAGYL500 MG PO; +Levaquin PO
== END | disposition home or self-care (01) ==
LOC: D.MRI 09:31
DX: M25.561 Pain in right knee (principal); M25.562 Pain in left knee

== ENCOUNTER → 2016-12-31 11:15 | Outpatient (CLI) | payer MEDICAID ==
[2016-11-12 10:20] VITALS: BMI 30.4
== END | disposition home or self-care (01) ==
LOC: D.LABREF 11:15
DX: M17.11 Unilateral primary osteoarthritis, right knee (principal); Z11.8 Encounter for screening for other infectious and parasitic diseases

== ENCOUNTER → 2017-11-13 10:26 | Outpatient (CLI) | payer MEDICAID ==
[2016-11-12 10:20] VITALS: BMI 30.4
== END | disposition home or self-care (01) ==
LOC: D.RT 10:26
DX: J44.9 Chronic obstructive pulmonary disease, unspecified (principal)

== ENCOUNTER 2017-11-21 14:02 | Outpatient (CLI) | payer MEDICAID ==
[2016-11-12 10:20] VITALS: BMI 30.4
== END 2017-11-21 23:59 | disposition home or self-care (01) ==
LOC: D.MAMMO 14:02
DX: Z12.31 Encounter for screening mammogram for malignant neoplasm of breast (principal)

== ENCOUNTER → 2018-04-29 08:41 | Outpatient (CLI) | payer BC, MEDICAID ==
[2016-11-12 10:20] VITALS: BMI 30.4
== END | disposition home or self-care (01) ==
LOC: D.HCCARDIO 08:41
DX: I25.10 Atherosclerotic heart disease of native coronary artery without angina pectoris (principal)

== ENCOUNTER 2018-05-06 17:57 | Observation (INO) | payer MEDICAID ==
[~2018-05-06] VITALS: Ht 175.3 cm; Wt 83.6 kg
--- NOTE | ~2018-05-06 | HP ---
PATIENT: MO ROBIN MEDICAL RECORD: [id number] ACCOUNT: [id number] [facility] 55 ADMISSION DATE: 05/06/18 PCP: PAVITHRA WILKINSON MD HISTORY AND PHYSICAL EXAMINATION DIAGNOSES: 1. Unstable angina. 2. Chronic obstructive pulmonary disease. 3. Smoking. HISTORY OF PRESENT ILLNESS: Mrs. Robin has been having increasing episodes of chest pain. She was seen in our office. She had nuclear stress test. This was abnormal. She was being set for catheterization. She presents with increasing chest pain. Her troponin is normal, but she continues to have the episodes of chest pain. PHYSICAL EXAMINATION: GENERAL APPEARANCE: Well-nourished, well-developed, appears stated age. Level of distress, comfortable. PSYCHIATRIC: Mental status, alert, normal affect. Orientation, oriented to time, place and person. EYES: Lids and conjunctiva, noninjected. No discharge, no pallor. ENT: Lips, teeth, gums, normal dentition. Oropharynx, no cyanosis, no pallor. NECK: Carotid arteries, bilateral normal upstroke, no bruits, no thrills. JUGULAR VEINS: No jugular venous pressure or distention. CERVICAL LYMPH NODES: Nontender, nonenlarged. THYROID: Not enlarged. Nontender. No nodules. LUNGS: Respiratory effort, unlabored. CHEST: Normal curvature. No thoracic deformity. No chest wall tenderness. Percussion, resonant. Auscultation, clear. No wheezes, no rales, no rhonchi. CARDIOVASCULAR: Precordial exam, nondisplaced. No heaves or pericardial thrills. Rate and rhythm, regular. Heart sounds, normal S1, normal S2. No S3, no gallop, no rub. Systolic murmur, not heard. Diastolic murmur, not heard. EXTREMITIES: No cyanosis, no edema. Peripheral pulses, full and equal in all extremities, except as noted. No bruits appreciated. ABDOMEN: Soft, nondistended. Normal aorta. No bruit. Nontender. No masses. Liver, nontender, no hepatomegaly. Spleen, nontender, no splenomegaly. MUSCULOSKELETAL: No joint tenderness. No joint swelling. No erythema. NEUROLOGICAL: Normal gait, normal strength, normal tone. SKIN: Warm and dry. OVERALL IMPRESSION: Chest pain compatible with angina in an escalating fashion. We will proceed with coronary angiography. Further care depends upon findings of the angiography. TRANSINT:[id number] Voice Confirmation ID: [id number] DOCUMENT ID: [id number] HISTORY AND PHYSICAL [id number] MO ROBIN JEFFREY MD at 1312 CC: [id number] DICTATION DATE: 05/07/18828 RAMPMAN: 05/07/18 0925 ADM IN [place] [id number] [place] [id number]
--- NOTE | ~2018-05-06 | HEMODYNAMI ---
PATIENT:MO CLEMENT MEDICAL RECORD: [id number] : 55 [facility] [address]# [id number] ADMISSION DATE: 05/06/18 Generatedon:05/07/201813:16 Patient name: MO CLEMENT Patient #: [id number] SSN: : 1955 Date of study: 05/07/2018 Page: Of Hemodynamic Procedure Report Patient Data Patient Demographics Procedure consent was obtained First Name: MO Gender: Female Last Name: RACQUEL : 1955 [facility] Initial: COLE Age: 63 year(s) Patient #: [id number] Race: Additional ID: [id number] Contact details Address: [address] State: [place] City: [place] Zip code: [address] Past Medical History Allergies Allergen Reaction Date Comments Reported Other allergy 10/27/2014 Budesonide, Fentanyl, Morphine, Percocet, Primaxin Admission Admission Data Admission Date: 05/06/2018 Admission Time: 21:07 Room #: D.E11 Weight (lbs.): 185.19 Weight (kg.): 84 Lab Results Lab Result Date: 05/07/2018 Lab Result Time: 0:00 Biochemistry Name Units Result Min Max BUN mg/dl 17 --(---*)-- 7 18 Creatinine mg/dl 1 --(--*-)-- 0.6 1.3 CBC Name Units Result Min Max Hemoglobin g/dl 13.1 -*(----)-- 13.5 17.5 Platelets 10^3/l 216 --(-*--)-- 130 400 Procedure Procedure Types Cath Procedure Diagnostic Procedure [facility] w/Coronaries FFR/IVUS Intra-Coronary IVUS Initial Sedation Charges Moderate Sedation up to 15 minutes PCI Procedure Coronary Stent Coronary Stent Initial Procedure Description Procedure Date Procedure Date: 05/07/2018 Procedure Start Time: 12:46 Procedure End Time: 13:09 Procedure Staff Name Function Wilian Corbett MD Performing Physician Rosalino Guerra RT Ceramist Wendy Torres RT Monitor Hansel Hanks RN Nurse Mae Prasad RT Scrub Procedure Data Cath Procedure Fluoroscopy Diagnostic fluoroscopy Total fluoroscopy Time: 5.3 time: 5.3 min min Diagnostic fluoroscopy Total fluoroscopy dose: 703 dose: 703 mGy mGy Contrast Material Contrast Material Type Amount (ml) Isovue 300 105 Entry Location Entry Primary Successful Side Size Upsize Upsize Entry Closure Succes sful Closure Location (Fr) 1 (Fr) 2 (Fr) Remarks Device Remarks Femoral Right 5 Fr 6 Fr Exoseal artery Short Estimated blood loss: 5 ml Diagnostic catheters Device Type Used For End Catheter Placement MULTIPACK Pigtail 5 Fr Multi-vessel catheter Angiography MULTIPACK JL 4.0 5Fr Left Coronary catheter Angiography MULTIPACK 3DRC 5Fr Right Coronary catheter Angiography Procedure Complications No complications Procedure Medications Medication Administration Route Dosage Oxygen etCO2 Nasal cannula 2 l/min Lidocaine 2% added to field 20 Heparin Flush Bag added to field 2 bags (1000units/500ml NS) 0.9% NaCl I.V. 100 ml/hr Versed I.V. 1 mg Dilaudid I.V. 1 mg Heparin Bolus I.V. 4000 units Versed I.V. 1 mg Dilaudid I.V. 1 mg Nitroglycerin IC/IA I.C. 200 mcg Nitroglycerin IC/IA I.C. 100 mcg Plavix P.O. 75 mg Hemodynamics Rest HGB: 13.1 (g/dl) Heart Rate: 71 (bpm) Pressure Samples Time Site Value (mmHg) Purpose Heart Use Rate(bpm) 12:52 LV 115/33,39 Snapshot 62 Snapshots Pre Cath Intra NCS Post Cath Vital Signs Time Heart Resp SPO2 etCO2 NIBP Rhythm Pain Sedation Rate (ipm) (%) (mmHg) (mmHg) Status Level (bpm) 12:38:56 70 18 100 0 120/62(88) NSR 0 (11) 10(A) , No pain 12:43:11 57 19 100 29 114/58(94) NSR 0 (11) 10(A) , No pain 12:48:18 63 20 100 14.9 112/55(79) NSR 0 (11) 10(A) , No pain 12:52:32 66 19 100 18.6 87/47(79) NSR 0 (11) 10(A) , No pain 12:57:41 67 16 100 33.5 101/51(75) NSR 0 (11) 9(A) , No pain 13:01:51 71 16 100 14.1 91/51(64) NSR 0 (11) 9(A) , No pain 13:05:57 77 15 99 15.6 109/54(80) NSR 0 (11) 9(A) , No pain 13:14:55 73 18 98 21.6 113/62(77) NSR 0 (11) 10(A) , No pain Medications Time Medication Route Dose Verified Delivered Reason Notes Effectiveness by by 12:41:26 Oxygen etCO2 2 Wilian Hamm used for Nasal l/min Aric Hanks RN procedure cannula 12:41:35 Lidocaine 2% added 20ml Wilian Cedeno for local to vial Aric Corbett MD anesthetic field 12:41:40 Heparin Flush added 2 Wilianryan Cedeno used for Bag to bags Aric Corbett MD procedure (1000units/500ml field NS) 12:41:47 0.9% NaCl I.V. 100 Wilian Hamm Per physician ml/hr Aric Hanks RN 12:46:48 Versed I.V. 1 mg Wilian Hmam for sedation Aric Hanks RN 12:46:55 Dilaudid I.V. 1 mg Wilian Hamm for sedation Aric Hanks RN 12:52:34 Versed I.V. 1 mg Wilian Hamm for sedation Aric Hanks RN 12:52:38 Dilaudid I.V. 1 mg Wilian Hamm for sedation Aric Hanks RN 12:57:29 Heparin Bolus I.V. 4000 Wilian Hamm for verif ied units Aric Hanks RN anticoagulation with dr corbett 13:05:31 Nitroglycerin I.C. 200 Wilian Cedeno for IC/IA mcg Aric Corbett MD vasodilation 13:06:10 Nitroglycerin I.C. 100 Wilian Cedeno for IC/IA mcg Aric Corbett MD vasodilation 13:09:37 Plavix P.O. 75 mg Wilian Hamm for Aric Hanks RN antiplatelet therapy Procedure Log Time Note 12:00:45 Hansel Hanks RN sent for patient. Start room use. 12:08:46 Time tracking: Regular hours (M-F 7:00 - 5:00) 12:08:50 Plan of Care:Hemodynamics will remain stable., Cardiac rhythm will remain stable., Comfort level will be maintained., Respiratory function will remain adequate., Patient/ family verbilizes understanding of procedure., Procedure tolerated without complication., Recovers from procedure without complications.. 12:22:14 Patient Weight : 185.19 lbs 12::33 Lab Result : Creatinine 1 mg/dl 12::33 Lab Result : BUN 17 mg/dl 12::33 Lab Result : Platelets 216 10^3/l 12::33 Lab Result : Hemoglobin 13.1 g/dl 12:27:13 Patient received from ED to CCL 2 Alert and oriented. Tansferred to table in Supine position. 12:27:14 Warm blankets applied, and kody hugger turned on for patient comfort. 12:27:14 Correct patient and procedure confirmed by team. 12:27:15 Signed procedure consent form obtained from patient. 12:27:17 ECG and BP/O2 sat monitors applied to patient. 12:37:44 Vital chart was started 12:37:45 Baseline sample Acquired. 12:37:49 Rhythm: sinus rhythm 12:37:51 Full Disclosure recording started 12:37:56 H&P Date Dictated: 05/07/2018 New H&P dictated by physician.. 12:37:57 Pre-procedure instructions explained to patient. 12:37:57 Pre-op teaching completed and patient verbalized understanding. 12:37:59 Family unavailable. 12:38:01 Patient NPO since Midnight. 12:38:02 Is the patient allergic to Iodine/contrast media? No. 12:38:03 Was the patient premedicated? No 12:38:04 Is patient on blood thinner?Yes 12:38:07 ACC The patient was administered the following blood thiners within the last 24 hours: ACCPlavix 12:38:10 Patient diabetic? No. 12:38:12 Previous problem with sedation/anesthesia? No ? 12:38:14 Snore? Yes 12:38:15 Sleep apnea? Yes 12:38:16 Deviated septum? No 12:38:16 Opens mouth fully? Yes 12:38:17 Sticks out tongue? Yes 12:38:22 Airway obstruction? Yes copd 12:38:25 Dentures? No ? 12:38:28 Pre procedure: right dorsailis pedis pulse 2+ Normal; easily identifiable; not easily obliterated 12:38:29 Pre procedure: left dorsailis pedis pulse 2+ Normal; easily identifiable; not easily obliterated 12:38:31 Patient pain scale 0/10 ?. 12:38:40 IV patent on arrival in right forearm with 0.9% NaCl at [facility]. 12:38:42 Lab results completed and on chart. 12:38:45 Right groin area was prepped with chlora-prep and draped in sterile fashion 12:38:46 Alarms reviewed by R. N. 12:38:47 Sharps counted by scrub and verified by R.N. 12:41:26 Oxygen 2 l/min etCO2 Nasal cannula was administered by Hansel Hanks RN; used for procedure; 12:41:35 Lidocaine 2% 20ml vial added to field was administered by Wilian Corbett MD; for local anesthetic; 12:41:40 Heparin Flush Bag (1000units/500ml NS) 2 bags added to field was administered by Wilian Corbett MD; used for procedure; 12:41:47 0.9% NaCl 100 ml/hr I.V. was administered by Hansel Hanks RN; Per physician; 12:45:58 Physician arrived 12:45:58 --------ALL STOP TIME OUT------ 12:45:58 Final Timeout: patient, procedure, and site verified with staff and physician. All members of the team are in agreement. 12:46:00 Right groin site verified by team. 12:46:03 Physical assessment completed. ASA score P 2 - A patient with mild systemic disease as per Wilian Corbett MD. 12:46:06 Sedation plan: IV Moderate Sedation Medication:Versed, Fentanyl 12:46:13 Use device set Femoral Dx 12:46:14 ACIST Syringe (92434) opened to sterile field. 12:46:14 Bag Decanter (2002) opened to sterile field. 12:46:14 Medline Cath Pack ([id number]) opened to sterile field. 12:46:15 DIAGNOSTIC WIRE .035 260cm J wire (656102) opened to sterile field. 12:46:16 ACIST Hand Control (04957) opened to sterile field. 12:46:17 ACIST Manifold (41664) opened to sterile field. 12:46:17 DIAGNOSTIC Multipack 5Fr catheter set (ME9386) opened to sterile field. 12:46:18 Tegaderm 4 x 4 (1626W) opened to sterile field. 12:46:18 SHEATH 5FR [place] (EOK155) opened to sterile field. 12:46:21 Procedure started. 12:46:25 Local anesthetic to right femoral artery with Lidocaine 2% by Wilian Corbett MD.INITIAL ACCESS ONLY 12:46:45 A 5 Fr sheath was inserted into the Right Femoral artery 12:46:48 Versed 1 mg I.V. was administered by Hansel Hanks RN; for sedation; 12:46:55 Dilaudid 1 mg I.V. was administered by Hansel Hanks RN; for sedation; 12:52:32 A MULTIPACK Pigtail 5 Fr catheter was advanced over the wire and used for Multi-vessel Angiography. 12:52:34 Versed 1 mg I.V. was administered by Hansel Hanks RN; for sedation; 12:52:38 Dilaudid 1 mg I.V. was administered by Hansel Hanks RN; for sedation; 12:52:43 LV hemodynamics recorded. 12:52:44 LV gram done using HENRY 12:52:47 Injector settings: Ml/sec: 5, Volume: 15, 12:52:53 EF : 40 % 12:52:57 Catheter removed. 12:53:02 A MULTIPACK JL 4.0 5Fr catheter was advanced over the wire and used for Left Coronary Angiography. 12:54:03 LCA angiography performed. 12:54:05 Injector settings: Ml/sec: 3, Volume: 6, 12:54:24 SHEATH 6FR [place] (AFQ887) opened to sterile field. 12:54:25 INFLATOR Merit BasixCompak (UZ0140) opened to sterile field. 12:54:25 CHOICE PT Extra Support 182cm wire ([id number]) opened to sterile field. 12:54:29 Catheter removed. 12:54:38 A MULTIPACK 3DRC 5Fr catheter was advanced over the wire and used for Right Coronary Angiography. 12:54:51 RCA angiography performed. 12:55:11 GUIDE 6FR XB 4.0 catheter (50984353) opened to sterile field. 12:55:19 Injector settings: Ml/sec: 3, Volume: 6, 12:55:21 Catheter removed. 12:56:28 Proceeding to intervention. 12:56:37 GUIDE 6FR HS I catheter (LA6HSI) opened to sterile field. 12:56:48 Sheath upsized to a 6 Fr Short. 12:56:55 6 Fr hs 1 guide catheter was inserted over the wire 12:57:00 choice pt wire advanced. 12:57:01 Wire advanced across lesion. 12:57:08 IVUS catheter advanced over wire. 12:57:11 IVUS pass to RCA lesion performed. 12:57:12 Sibley Venetie Ira Eagleye IVUS Catheter (58403V) opened to sterile field. 12:57:29 Heparin Bolus 4000 units I.V. was administered by Hansel Hanks RN; for anticoagulation; verified with dr corbett 12:58:26 IVUS catheter removed over wire. 12:58:35 Wire removed. 12:58:35 Guide catheter removed. 12:58:49 CHOICE PT Extra Support 182cm wire ([id number]) opened to sterile field. 12:59:02 6 Fr xb 4 guide catheter was inserted over the wire 12:59:10 choice pt wire advanced. 12:59:54 Wire advanced across lesion. 13:03:01 Place stent Inflation Number: 1 A KENDRA RX 2.75 x 12 stent ([id number]) was prepped and advanced across the Mid CX. The stent was deployed at 100 AKIKO for 0:10 (min:sec). 13:03:49 Stent catheter was removed intact over wire. 13:05:31 Nitroglycerin IC/IA 200 mcg I.C. was administered by Wilian Corbett MD; for vasodilation; 13:06:10 Nitroglycerin IC/IA 100 mcg I.C. was administered by Wilian Corbett MD; for vasodilation; 13:06:45 Wire removed. 13:06:45 Guide catheter removed. 13:06:53 EXOSEAL 6Fr (EX600) opened to sterile field. 13:07:21 Sheath removed intact; hemostasis achieved with Exoseal to the Right Femoral artery. 13:07:41 Procedure ended.(Physican Out) 13:07:56 Fluoroscopy time 05.30 minutes. 13:08: Fluoroscopy dose: 703 mGy 13:08:01 Flurop Dose total: 703 13:08:06 Contrast amount:Isovue 300 105ml. 13:08:08 Sharps counted by scrub and verified by R.N. 13:08:10 Insertion/operative site no bleeding no hematoma. 13:08:13 Post-op/insertion site Right Femoral artery dressed using a 4 x 4 and Tegaderm. 13:08:16 Post right femoral artery:stable 13:08:20 Post Procedure Pulses reassessed and unchanged 13:08:30 Post procedure rhythm: unchanged. 13:08:32 Estimated blood loss: 5 ml 13:08:33 Post procedure instruction explained to patient.Patient verbalizes understanding. 13:08:34 Patient needs reinforcement of post procedure teaching. 13:08:50 Procedure type changed to Cath procedure, Diagnostic procedure, LHC, LHC w/Coronaries, FFR/IVUS, Intra-Coronary IVUS Initial, Sedation Charges, Moderate Sedation up to 15 minutes, PCI procedure, Coronary Stent, Coronary Stent Initial 13:08:51 Procedure and supply charges have been captured, reviewed, submitted and are correct. 13:08:55 Procedure Complication : No complications 13:09:00 Vital chart was stopped 13:09:01 See physician's report for complete and final results. 13:09:16 Report given to Pre/Post Procedure Room. 13:09:19 Patient transfered to Pre/Post Procedure Room with Stretcher. 13:09:22 Procedure ended. 13:09:22 Full Disclosure recording stopped 13:09:36 ACC-PCI Only Patient was given prescriptions, or instructed by Wilian Corbett MD to start/continue the following medications upon discharge: Plavix 13:09:37 Plavix 75 mg P.O. was administered by Hansel Hanks RN; for antiplatelet therapy; 13:09:38 End room use (Document Last) 13:12:59 Femstop placed over the right femoral artery at 150 mmHg. Hemostasis achieved. 13:13:52 FEMSTOP Gold (R84329) opened to sterile field. Intervention Summary Intervention Notes Time ActionType Lesion and Equipment Used Action# Pressure Duration Attributes 13:03:01 Place stent Mid CX KENDRA RX 2.75 x 1 100 00:10 12 stent ([id number]) Device Usage Item Name Manufacture Quantity Catalog Number Hospital Part Current M inimal Lot# / Charge Number Stock Stock Serial# Code ACIST Syringe Acist 1 94281 359777 495126 489553 2 0 (21627) Medical Systems Inc Bag Decanter Microtek 1 316308 21672 831965 5 () Medical Inc. Medline Cath Medline 1 [id number] 028192 08274 960645 5 Pack ([id number]) DIAGNOSTIC St Raul 1 545545 287336 522572 221522 3 0 WIRE .035 260cm J wire (882325) ACIST Hand Acist 1 01201 454750 729426 344661 5 Control Medical (58319) Systems Inc ACIST Manifold Acist 1 18921 398170 459491 276720 5 (36783) Medical Systems Inc DIAGNOSTIC Cardinal 1 RO2860 574128 92506 614582 3 0 Multipack 5Fr Health catheter set (CL3038) Tegaderm 4 x 4 3M 1 1626W 525075 386857 924282 5 (1626W) SHEATH 5FR Terumo 1 IDS289 942997 061215 019173 4 0 [place] (QKK316) MULTIPACK Cardinal 1 425994 5 Pigtail 5 Fr Health catheter MULTIPACK JL Cardinal 1 439577 5 4.0 5Fr Health catheter SHEATH 6FR Terumo 1 XXT613 157570 474385 508681 4 0 [place] (MNA011) INFLATOR Merit Merit 1 VG6837 368452 407203 388567 1 5 [facility] Center[facility] (LR7111) CHOICE PT [place] 2 [id number] 819663 062259 641982 5 Extra Support Scientific 182cm wire ([id number]) MULTIPACK 3DRC Cardinal 1 191955 5 5Fr catheter Health GUIDE 6FR XB Cardinal 1 39241600 028539 489404 498794 2 4.0 catheter Health ([id number]) GUIDE 6FR HS I Medtronic 1 LA6HSI 595284 90252 019021 1 catheter (LA6HSI) Sibley Sibley 1 10128O 767641 944281 042711 8 Venetie Ira Eagleye IVUS Catheter (63026A) KENDRA RX 2.75 x Medtronic 1 [id number] 954095 6739651 703383 5 [id number] 12 stent ([id number]) EXOSEAL 6Fr Cardinal 1 EX600 977061 797591 989009 1 0 (EX600) [facility]ul 1 K99065 935985 891123 363958 5 (Z63712) Signature Audit [place] Stage Time Signature Unsigned Intra-Procedure 05/07/2018 Wendy Torres 1:16:15 PM RT(R) Signatures Monitor : Wendy Torres RT Signature : Date : Time : [place] [address] [place] [address]
--- NOTE | ~2018-05-06 | OP ---
PATIENT NAME: MO CLEMENT MEDICAL RECORD: [id number] :55 [facility] ADMISSION DATE:05/06/18 SURGEON: MARIANA STALLINGS MD DATE OF OPERATION: 05/07/2018 PROCEDURES: 1. PTCA stent left circumflex. 2. Intravascular ultrasound. 3. Left heart catheterization. 4. Selective coronary angiography. 5. Left ventriculogram. INDICATION: Unstable angina and coronary artery disease. PROCEDURE IN DETAIL: After informed consent was obtained and after a detailed description of the risks, benefits as well as alternative therapies, the patient elected to proceed with angiogram and angioplasty. The right femoral area was prepped and draped in normal sterile fashion. Right femoral artery was cannulated via modified Seldinger technique with placement of 6-Thai sheath. All catheters exchanged through this sheath. FINDINGS: The left ventriculogram was performed in standard 30-degree HENRY view, reveals good cardiac wall motion throughout all segments. Overall ejection fraction estimated 60%. SELECTIVE CORONARY ANGIOGRAPHY: 1. Left main is with no significant angiographic disease. 2. Left anterior descending has moderate irregularities, but no flow-limiting stenosis. 3. The left circumflex has previously placed stents. There is 95% in-stent restenosis in the mid vessel. 4. The right coronary has previously placed stents. Intravascular ultrasound reveals there is no significant in-stent restenosis of the right. PTCA STENT OF THE LEFT CIRCUMFLEX: The stent used is a 2.75 x 12 mm [place] taken to 21 atmospheres. Result was 0% residual stenosis. OVERALL IMPRESSION: Successful percutaneous transluminal coronary angioplasty stent of the left circumflex going from 95% initial stenosis to 0% residual. TRANSINT:[id number] Voice Confirmation ID: [id number] DOCUMENT ID: [id number] 05/12/2018 Edited to correct date of service, dmm. MARIANA STALLINGS MD CC: [id number] DICTATION DATE: 05/07/18 1313 COMPUTER EDUCATION TEACHER: 05/07/18 1336 DIS IN 05/07/[address] [address]
[2018-05-06 18:26] VITALS: Ht 175.3 cm; Wt 83.6 kg
[2018-05-06 19:10] LABS: BASOPHILS 0.6 % (0-2); EOSINOPHILS 2.7 % (0-7); HEMATOCRIT 40.5 % (36.0-48.0); HEMOGLOBIN 13.3 g/dL (12-16); IMMATURE GRANULOCYTES 0.1 % (0-5); LYMPHOCYTES 28.6 % (15-50); MCH 27.8 pg (26.0-34.0); MCHC 32.8 g/dL (31.0-37.0); MCV 84.6 fL (80.0-100.0); MONOCYTES 6.4 % (2-11); NEUTROPHILS 61.6 % (40-80); RBC 4.79 10x6/uL (4.00-5.40); RDW 15.7 % (11.5-14.5); WBC 8.5 10x3/uL (4.8-10.8)
[2018-05-06 19:18] LABS: PLATELET COUNT 208 10x3/uL (130-400)
[2018-05-06 19:30] LABS: APTT 26.1 SECONDS (22.8-39.4); INR 1.06 (0.85-1.17); PROTIME 13.3 SECONDS (11.6-15.0)
[2018-05-06 19:49] LABS: ALBUMIN 3.4 g/dL (3.4-5.0); ALKALINE PHOSPHATASE 78 U/L (46-116); ALT (SGPT) 20 U/L (10-68); BILIRUBIN - TOTAL 0.26 mg/dL (0.2-1.3); CALC OSMOLALITY 282 mosm/kg (275-300); CALCIUM 8.8 mg/dL (8.5-10.1); CHLORIDE - SERUM 106 mmol/L (98-107); CREATININE - SERUM 1.3 mg/dL (0.6-1.3); POTASSIUM - SERUM 4.8 mmol/L (3.5-5.1); SODIUM 140 mmol/L (136-145); UREA NITROGEN 23 mg/dL (7-18); eGFR NON AFRICAN AMERICAN 44 mL/min (90-120)
[2018-05-06 19:50] LABS: GLUCOSE 103 mg/dL (74-106)
[2018-05-06 20:05] LABS: CKMB 1.3 U/L (0.0-3.6); CREATINE KINASE 63 UL (21-215); MAGNESIUM - SERUM 1.7 mg/dL (1.8-2.4)
[2018-05-06 20:06] LABS: TROPONIN-I < 0.017 ng/mL (0.000-0.060)
[2018-05-06 22:00] VITALS: BP 122/61
[2018-05-07] VITALS (9 sets, daily range): BP systolic 105–148; BP diastolic 51–73
[2018-05-07 01:48] LABS: CREATINE KINASE 47 UL (21-215)
[2018-05-07 01:49] LABS: TROPONIN-I < 0.017 ng/mL (0.000-0.060)
[2018-05-07 05:09] LABS: BASOPHILS 0.4 % (0-2); EOSINOPHILS 3.5 % (0-7); HEMATOCRIT 40.3 % (36.0-48.0); HEMOGLOBIN 13.1 g/dL (12-16); IMMATURE GRANULOCYTES 0.3 % (0-5); LYMPHOCYTES 30.8 % (15-50); MCH 27.9 pg (26.0-34.0); MCHC 32.5 g/dL (31.0-37.0); MCV 85.7 fL (80.0-100.0); MEAN PLATELET VOLUME 10.2 fL (7.4-10.4); MONOCYTES 5.5 % (2-11); NEUTROPHILS 59.5 % (40-80); PLATELET COUNT 216 10x3/uL (130-400); RDW 15.9 % (11.5-14.5); WBC 6.9 10x3/uL (4.8-10.8)
[2018-05-07 07:35] LABS: ALBUMIN 3.2 g/dL (3.4-5.0); ALKALINE PHOSPHATASE 75 U/L (46-116); ALT (SGPT) 15 U/L (10-68); BILIRUBIN - TOTAL 0.24 mg/dL (0.2-1.3); CALCIUM 8.3 mg/dL (8.5-10.1); CARBON DIOXIDE 24.6 mmol/L (21.0-32.0); CHLORIDE - SERUM 107 mmol/L (98-107); CKMB 1.5 U/L (0.0-3.6); CREATINE KINASE 57 UL (21-215); GLUCOSE 88 mg/dL (74-106); POTASSIUM - SERUM 4.2 mmol/L (3.5-5.1); PROTEIN - SERUM 6.6 g/dL (6.4-8.2); SODIUM 140 mmol/L (136-145); eGFR NON AFRICAN AMERICAN 59 mL/min (90-120)
[2018-05-07 07:36] LABS: CALC OSMOLALITY 279 mosm/kg (275-300); TROPONIN-I < 0.017 ng/mL (0.000-0.060); UREA NITROGEN 17 mg/dL (7-18)
[2018-05-07] MEDS ORDERED: PLAVIX75 MG PO (13:41)
== END 2018-05-07 17:30 | disposition home or self-care (01) ==
LOC: D.ER 17:57 → D.EDHOLD 21:07 → OBSVTIME 21:08 → D.CLR 05-07 13:36
PROVIDERS: Emergency Medicine; Family Medicine
DX: I25.110 Atherosclerotic heart disease of native coronary artery with unstable angina pectoris (principal); J44.9 Chronic obstructive pulmonary disease, unspecified; Z87.891 Personal history of nicotine dependence

== ENCOUNTER 2018-05-08 11:45 | Emergency (ER) | payer MEDICAID ==
[~2018-05-08] VITALS: Ht 175.3 cm; Wt 83.6 kg
[2018-05-08 12:26] VITALS: Ht 175.3 cm; Wt 83.6 kg
[2018-05-08 13:11] LABS: BASOPHILS 0.3 % (0-2); EOSINOPHILS 2.5 % (0-7); HEMATOCRIT 39.5 % (36.0-48.0); HEMOGLOBIN 12.9 g/dL (12-16); IMMATURE GRANULOCYTES 0.1 % (0-5); LYMPHOCYTES 25.5 % (15-50); MCH 27.9 pg (26.0-34.0); MCHC 32.7 g/dL (31.0-37.0); MCV 85.3 fL (80.0-100.0); MONOCYTES 6.4 % (2-11); NEUTROPHILS 65.2 % (40-80); PLATELET COUNT 187 10x3/uL (130-400); RBC 4.63 10x6/uL (4.00-5.40); WBC 7.3 10x3/uL (4.8-10.8)
[2018-05-08 13:16] LABS: APPEARANCE CLEAR (CLEAR); BILIRUBIN NEGATIVE (NEGATIVE); COLOR YELLOW (YELLOW); GLUCOSE NEGATIVE (NEGATIVE); KETONE NEGATIVE (NEGATIVE); NITRITE NEGATIVE (NEGATIVE); PROTEIN NEGATIVE (NEGATIVE); SPECIFIC GRAVITY 1.015 (1.005-1.020); UROBILINOGEN NORMAL (NORMAL)
[2018-05-08 13:21] LABS: INR 1.02 (0.85-1.17); PROTIME 12.9 SECONDS (11.6-15.0)
[2018-05-08 13:30] LABS: ALBUMIN 3.4 g/dL (3.4-5.0); ALKALINE PHOSPHATASE 79 U/L (46-116); BILIRUBIN - TOTAL 0.32 mg/dL (0.2-1.3); CALC OSMOLALITY 283 mosm/kg (275-300); CARBON DIOXIDE 28.6 mmol/L (21.0-32.0); CHLORIDE - SERUM 105 mmol/L (98-107); CREATININE - SERUM 1.1 mg/dL (0.6-1.3); GLUCOSE 98 mg/dL (74-106); POTASSIUM - SERUM 3.9 mmol/L (3.5-5.1); SODIUM 142 mmol/L (136-145); UREA NITROGEN 16 mg/dL (7-18); eGFR NON AFRICAN AMERICAN 53 mL/min (90-120)
[2018-05-08 13:31] LABS: ALT (SGPT) 21 U/L (10-68)
[2018-05-08 13:45] LABS: CREATINE KINASE 51 UL (21-215); MAGNESIUM - SERUM 1.7 mg/dL (1.8-2.4)
[2018-05-08 15:18] LABS: AMYLASE - SERUM 65 U/L (25-115); LIPASE 222 U/L (73-393)
[2018-05-08 22:01] VITALS: BP 127/64
== END 2018-05-08 22:01 | disposition home or self-care (01) ==
LOC: D.ER 11:45
PROVIDERS: Family Medicine
DX: R50.9 Fever, unspecified (principal); R07.9 Chest pain, unspecified; J44.9 Chronic obstructive pulmonary disease, unspecified; Z86.79 Personal history of other diseases of the circulatory system; R06.09 Other forms of dyspnea; I49.3 Ventricular premature depolarization

== ENCOUNTER 2018-08-16 10:47 | Emergency (ER) | payer MEDICAID ==
[~2018-08-16] VITALS: Ht 175.3 cm; Wt 81.4 kg
[2018-08-16 11:07] VITALS: Ht 175.3 cm; Wt 81.4 kg
[2018-08-16 11:49] LABS: APPEARANCE CLEAR (CLEAR); BILIRUBIN NEGATIVE (NEGATIVE); COLOR STRAW (YELLOW); GLUCOSE NEGATIVE (NEGATIVE); KETONE NEGATIVE (NEGATIVE); NITRITE NEGATIVE (NEGATIVE); PROTEIN NEGATIVE (NEGATIVE); UROBILINOGEN NORMAL (NORMAL)
[2018-08-16 12:16] LABS: BASOPHILS 0.2 % (0-2); EOSINOPHILS 2.1 % (0-7); HEMATOCRIT 42.9 % (36.0-48.0); HEMOGLOBIN 14.1 g/dL (12-16); IMMATURE GRANULOCYTES 0.2 % (0-5); LYMPHOCYTES 18.8 % (15-50); MCH 28.3 pg (26.0-34.0); MCHC 32.9 g/dL (31.0-37.0); MEAN PLATELET VOLUME 10.1 fL (7.4-10.4); MONOCYTES 4.2 % (2-11); NEUTROPHILS 74.5 % (40-80); RBC 4.99 10x6/uL (4.00-5.40); RDW 15.3 % (11.5-14.5); WBC 9.6 10x3/uL (4.8-10.8)
[2018-08-16 12:17] LABS: PLATELET COUNT 251 10x3/uL (130-400)
[2018-08-16 12:31] LABS: ALBUMIN 3.7 g/dL (3.4-5.0); ALKALINE PHOSPHATASE 97 U/L (46-116); ALT (SGPT) 17 U/L (10-68); BILIRUBIN - TOTAL 0.36 mg/dL (0.2-1.3); CALC OSMOLALITY 288 mosm/kg (275-300); CALCIUM 9.2 mg/dL (8.5-10.1); CARBON DIOXIDE 28.6 mmol/L (21.0-32.0); CHLORIDE - SERUM 108 mmol/L (98-107); GLUCOSE 87 mg/dL (74-106); POTASSIUM - SERUM 4.7 mmol/L (3.5-5.1); PROTEIN - SERUM 7.7 g/dL (6.4-8.2); SODIUM 144 mmol/L (136-145); UREA NITROGEN 22 mg/dL (7-18); eGFR NON AFRICAN AMERICAN 59 mL/min (90-120)
[2018-08-16 12:42] LABS: CKMB 1.4 U/L (0.0-3.6); CREATINE KINASE 44 UL (21-215)
[2018-08-16 12:43] LABS: TROPONIN-I < 0.017 ng/mL (0.000-0.060)
[2018-08-16] MEDS ORDERED: DILAUDID4 MG PO (13:09)
[2018-08-16 13:15] VITALS: BP 129/79
== END 2018-08-16 13:18 | disposition home or self-care (01) ==
LOC: D.ER 10:47
PROVIDERS: Emergency Medicine
DX: R07.89 Other chest pain (principal); M54.6 Pain in thoracic spine

== ENCOUNTER 2018-11-12 20:30 | Emergency (ER) | payer MEDICAID ==
[~2018-11-12 20:30] MED LIST changes: +DILAUDID4 MG PO; +LEVO-T137 MCG PO; -LEVOTHYROXINE100 MCG PO
[2018-11-12 20:38] VITALS: BMI 26.6
[2018-11-12] MEDS ORDERED: PHENERGAN25 M1 (20:41)
[2018-11-12 21:22] LABS: BASOPHILS 0.2 % (0-2); EOSINOPHILS 1.2 % (0-7); HEMATOCRIT 45.3 % (36.0-48.0); HEMOGLOBIN 15.4 g/dL (12-16); IMMATURE GRANULOCYTES 0.1 % (0-5); LYMPHOCYTES 22.4 % (15-50); MCH 28.8 pg (26.0-34.0); MCV 84.7 fL (80.0-100.0); MEAN PLATELET VOLUME 10.1 fL (7.4-10.4); NEUTROPHILS 70.1 % (40-80); RBC 5.35 10x6/uL (4.00-5.40); RDW 15.8 % (11.5-14.5); WBC 10.1 10x3/uL (4.8-10.8)
[2018-11-12 21:25] LABS: APPEARANCE CLEAR (CLEAR); BILIRUBIN NEGATIVE (NEGATIVE); COLOR YELLOW (YELLOW); GLUCOSE NEGATIVE (NEGATIVE); KETONE NEGATIVE (NEGATIVE); NITRITE NEGATIVE (NEGATIVE); PLATELET COUNT 192 10x3/uL (130-400); PROTEIN NEGATIVE (NEGATIVE); SPECIFIC GRAVITY 1.015 (1.005-1.020); UROBILINOGEN NORMAL (NORMAL)
[2018-11-12 21:31] LABS: ALBUMIN 3.9 g/dL (3.4-5.0); ALKALINE PHOSPHATASE 88 U/L (46-116); ALT (SGPT) 17 U/L (10-68); BILIRUBIN - TOTAL 0.56 mg/dL (0.2-1.3); CALC OSMOLALITY 280 mosm/kg (275-300); CALCIUM 9.7 mg/dL (8.5-10.1); CARBON DIOXIDE 25.9 mmol/L (21.0-32.0); CHLORIDE - SERUM 104 mmol/L (98-107); CREATININE - SERUM 0.9 mg/dL (0.6-1.3); GLUCOSE 97 mg/dL (74-106); POTASSIUM - SERUM 3.8 mmol/L (3.5-5.1); PROTEIN - SERUM 7.7 g/dL (6.4-8.2); SODIUM 141 mmol/L (136-145); UREA NITROGEN 13 mg/dL (7-18); eGFR NON AFRICAN AMERICAN 67 mL/min (90-120)
[2018-11-12 21:34] LABS: AMYLASE - SERUM 93 U/L (25-115); LIPASE 224 U/L (73-393); TROPONIN-I < 0.017 ng/mL (0.000-0.060)
[2018-11-12] MEDS ORDERED: PHENERGAN25 M1 PO (21:53)
[2018-11-12 22:30] VITALS: BP 138/88
== END 2018-11-12 22:30 | disposition home or self-care (01) ==
LOC: D.ER 20:30
PROVIDERS: Family Medicine
DX: R10.13 Epigastric pain (principal); I25.10 Atherosclerotic heart disease of native coronary artery without angina pectoris; J44.9 Chronic obstructive pulmonary disease, unspecified; R11.2 Nausea with vomiting, unspecified

== ENCOUNTER 2018-12-31 18:36 | Observation (INO) | payer MEDICAID ==
[~2018-12-31] VITALS: Ht 175.3 cm; Wt 80.7 kg
--- NOTE | ~2018-12-31 | DS ---
PATIENT:MO ROBIN :55 MEDICAL RECORD: [id number] DISCHARGE SUMMARY ADMISSION DATE: 12/31/18 DISCHARGE DATE: 01/01/19 DIAGNOSES: 1. Angina. 2. Coronary artery disease. 3. Previous multivessel percutaneous transluminal coronary angioplasty stent. 4. Smoking history. 5. Chronic obstructive pulmonary disease. 6. Hyperlipidemia. Mrs. Robin presents with anginal symptomatology; however, cardiac catheterization revealed wide patency of the previously placed stents, no disease elsewise. Continue medical management of the coronary artery disease, cardiac risk factors. TRANSINT:[id number] Voice Confirmation ID: [id number] DOCUMENT ID: [id number] MARIANA STALLINGS MD CC: [id number] DICTATION DATE: 01/01/191402 MAGNETIC HEALER: 01/02/19 0158 DIS IN 01/01/19 [facility] [address] [place] [address]
--- NOTE | ~2018-12-31 | HEMODYNAMI ---
PATIENT:MO CLEMENT MEDICAL RECORD: [id number] : 55 LOCATION:[facility] D.[address] [facility]# [id number] ADMISSION DATE: 12/31/18 Generatedon:01/01/201914:05 Patient name: MO CLEMENT Patient #: [id number] SSN: [id number] : 1955 Date of study: 01/01/2019 Page: Of Hemodynamic Procedure Report Patient Data Patient Demographics Procedure consent was obtained First Name: MO Gender: Female Last Name: RACQUEL : 1955 Middle Initial: COLE Age: 63 year(s) Patient #: [id number] Race: SSN: [id number] Additional ID: [id number] Contact details [address]: [address] [place] [address] State: [place] City: [place] Zip code: [address] Past Medical History History of disease Date Diagnosis Comments Hypertension COPD CAD Allergies Allergen Reaction Date Comments Reported Other allergy 10/27/2014 Budesonide, Fentanyl, Morphine, Percocet, Primaxin Other allergy 01/01/2019 BUDESONIDE, CILASTATIN, FENTANYL, PRIMAXIN, MORPHINE, PERCODAN, AMIODARONE, SORBITOL, SPIRONOLACTONE Admission Admission Data Admission Date: 12/31/2018 Admission Time: 21:51 Arrival Date: 01/01/2019 Arrival Time: 0:00 Admit Source: Other Insurance Payor: Private Room #: [id number] health insurance [facility] #: [id number] Height (in.): 69 BSA: 1.97 (m2) Height (cm.): 175.26 BMI: 26.37 (kg/m2) Weight (lbs.): 178.58 Weight (kg.): 81 Medications upon Admission Medications Dosage Times Administered Last Remarks per Delivery Day Date and Time Clopidogrel 75 mg Aspirin 325 mg (any) Current Diagnosis Diagnosis Description Unstable angina Lab Results Lab Result Date: 01/01/2019 Lab Result Time: 0:00 Biochemistry Name Units Result Min Max BUN mg/dl 14 --(--*-)-- 7 18 Creatinine mg/dl 1.1 --(--*-)-- 0.6 1.3 eGFR ml/min 53 *-(----)-- 90 120 NONAFRICAN CBC Name Units Result Min Max Hematocrit % 40.1 -*(----)-- 42 54 Hemoglobin g/dl 13.2 -*(----)-- 13.5 17.5 Procedure Procedure Types Cath Procedure Diagnostic Procedure [facility] w/Coronaries Procedure Description Procedure Date Procedure Date: 01/01/2019 Procedure Start Time: 13:52 Procedure End Time: 14:00 Procedure Staff Name Function Wilian Corbett MD Performing Physician Sravani Zurita RT Monitor Gwen Ornelas RT Scrub Keyona Worthy RN Nurse Shravan Snow RT Scrub Indication CAD Angina Procedure Data Cath Procedure Fluoroscopy Diagnostic fluoroscopy Total fluoroscopy Time: 1.1 time: 1.1 min min Diagnostic fluoroscopy Total fluoroscopy dose: 248 dose: 248 mGy mGy Contrast Material Contrast Material Type Amount (ml) Isovue 300 58 Entry Location Entry Primary Successful Side Size Upsize Upsize Entry Closure Succes sful Closure Location (Fr) 1 (Fr) 2 (Fr) Remarks Device Remarks Femoral Right 5 Fr Exoseal artery Estimated blood loss: 5 ml Diagnostic catheters Device Type Used For End Catheter Placement MULTIPACK Pigtail 5 Fr Procedure catheter MULTIPACK JL 4.0 5Fr Procedure catheter MULTIPACK 3DRC 5Fr Procedure catheter Procedure Complications No complications Procedure Medications Medication Administration Route Dosage 0.9% NaCl I.V. 100 ml/hr Oxygen etCO2 Nasal cannula 2 l/min Lidocaine 2% added to field 20 Heparin Flush Bag added to field 2 bags (1000units/500ml NS) Plavix P.O. 75 mg Versed I.V. 2 mg Dilaudid I.V. 1 mg Versed I.V. 2 mg Versed I.V. 2 mg Hemodynamics Rest BSA: 1.97 (m2) HGB: 13.2 (g/dl) O2 Consumption: Estimated: 185.52 (ml/min) O2 Co nsumption indexed: Estimated:94.17 (ml/min/m) Heart Rate: 71 (bpm) Snapshots Pre Cath Intra NCS Post Cath Vital Signs Time Heart Resp SPO2 etCO2 NIBP (mmHg) Rhythm Pain Sedation Rate (ipm) (%) (mmHg) Status Level (bpm) 13:15:40 72 18 98 30.9 168/89(142) NSR 0 (11) 10(A) , No pain 13:20:04 69 17 100 31.7 154/83(99) NSR 0 (11) 10(A) , No pain 13:24:24 82 16 98 35.5 122/87(105) NSR 0 (11) 10(A) , No pain 13:28:32 72 15 97 1.5 138/86(106) NSR 0 (11) 10(A) , No pain 13:32:46 70 14 97 11.3 137/83(100) NSR 0 (11) 10(A) , No pain 13:37:02 68 14 97 27.9 141/75(103) NSR 0 (11) 10(A) , No pain 13:41:14 69 12 97 30.9 138/88(113) NSR 0 (11) 10(A) , No pain 13:45:32 70 11 98 39 115/67(84) NSR 0 (11) 10(A) , No pain 13:49:42 66 10 97 36.9 112/62(80) NSR 0 (11) 10(A) , No pain 13:53:48 65 10 97 42.2 111/74(93) NSR 0 (11) 10(A) , No pain 13:58:47 69 15 96 36.9 Measuring NSR 0 (11) 10(A) , No pain 13:58:49 72 14 96 36.9 148/80(103) NSR 0 (11) 10(A) , No pain Medications Time Medication Route Dose Verified Delivered Reason Notes E ffectiveness by by 13:19:08 0.9% NaCl I.V. 100 Wilian Keyona used for ml/hr Aric Worthy wood turning lathe operator 13:19:15 Oxygen etCO2 2 Wilian Keyona used for Nasal l/min Aric Worthy procedure cannula RN 13:19:21 Lidocaine 2% added 20ml Wilian Cedeno for local to vial Aric Corbett MD anesthetic field 13:19:25 Heparin Flush added 2 Wilian Wilian used for Bag to bags Aric Corbett MD procedure (1000units/500ml field NS) 13:19:39 Plavix P.O. 75 mg Wilian Keyona for Aric Worthy antiplatelet RN therapy 13:52:09 Versed I.V. 2 mg Wilian Keyona for sedation Aric Worthy RN 13:52:20 Dilaudid I.V. 1 mg Wilian Keyona for sedation Aric Worthy RN 13:55:09 Versed I.V. 2 mg Wilian Keyona for sedation Aric Worthy RN 14:58:32 Versed I.V. 2 mg Wilian Keyona for sedation Aric Worthy RN Procedure Log Time Note 12:37:42 Informed consent obtained and on chart 12:44:12 Arrival Date: 01/01/2019 12:00:00 AM 12:45:03 Admit Source: Other 12:45:07 Insurance Payor : Private health insurance 12:45:29 Patient Height : 69 inches 12:45:38 Patient Weight : 178.58 lbs 12:47:24 Current Diagnosis : Unstable angina 12:48:28 Lab Result : BUN 14 mg/dl 12:48:28 Lab Result : eGFR NONAFRICAN 53 ml/min 12:48:28 Lab Result : Creatinine 1.1 mg/dl 12:48:28 Lab Result : Hematocrit 40.1 % 12:48:28 Lab Result : Hemoglobin 13.2 g/dl 12:48:38 Diagnostic Cath Status : Urgent 12:48:39 PCI Cath Status : Urgent 12:49:40 Indication : CAD 12:49:48 Indication : Angina 12:51:01 Procedure Status Urgent Heart Cath (IP). 12:51:03 Time tracking: Regular hours (M-F 7:00 - 5:00) 12:51:06 Plan of Care:Hemodynamics will remain stable., Cardiac rhythm will remain stable., Comfort level will be maintained., Respiratory function will remain adequate., Patient/ family verbilizes understanding of procedure., Procedure tolerated without complication., Recovers from procedure without complications.. 12:52:49 Patient allergic to Other allergyBUDESONIDE, CILASTATIN, FENTANYL, PRIMAXIN, MORPHINE, PERCODAN, AMIODARONE, SORBITOL, SPIRONOLACTONE 12:55:20 Sravani Zurita RT(R) sent for patient. Start room use. 13:08:27 Patient received from Med II to CCL 2 Alert and oriented. Tansferred to table in Supine position. 13:08:27 Warm blankets applied, and kody hugger turned on for patient comfort. 13:08:28 Correct patient and procedure confirmed by team. 13:08:28 ECG and BP/O2 sat monitors applied to patient. 13:14:26 Vital chart was started 13:14:28 Baseline sample Acquired. 13:14:31 Rhythm: sinus rhythm 13:14:33 Full Disclosure recording started 13:15:31 H&P Date Dictated: 12/31/2018 Within 30 days and on chart.. 13:15:33 Pre-procedure instructions explained to patient. 13:15:33 Pre-op teaching completed and patient verbalized understanding. 13:15:35 Family in patients room. 13:15:41 Patient NPO since Midnight. 13:15:43 Is the patient allergic to Iodine/contrast media? No. 13:15:49 Is patient on blood thinner?Yes 13:15:52 ACC The patient was administered the following blood thiners within the last 24 hours: ACCPlavix 13:16:37 Patient diabetic? No. 13:16:40 Previous problem with sedation/anesthesia? No ? 13:16:41 Snore? Yes 13:16:43 Sleep apnea? No 13:16:43 Deviated septum? No 13:16:44 Opens mouth fully? Yes 13:16:45 Sticks out tongue? Yes 13:16:49 Airway obstruction? Yes COPD 13:16:53 Dentures? No . 13:17:01 Pre procedure: right dorsailis pedis pulse 3+ Increased pulse; moderate pressure to obliterate 13:17:04 Patient pain scale 0/10 ?. 13:17:16 IV patent on arrival in left forearm with 0.9% NaCl at KVO. 13:17:18 Lab results completed and on chart. 13:17:22 Right groin area was prepped with chlora-prep and draped in sterile fashion 13:17:23 Alarms reviewed by R. N. 13:17:23 Sharps counted by scrub and verified by R.N. 13:17:27 Use device set Femoral Dx 13:17:29 Tegaderm 4 x 4 (1626W) opened to sterile field. 13:17:30 ACIST Manifold (93372) opened to sterile field. 13:17:31 ACIST Hand Control (69662) opened to sterile field. 13:17:33 ACIST Syringe (47356) opened to sterile field. 13:17:33 Bag Decanter (2002S) opened to sterile field. 13:17:34 Medline Cath Pack ([id number]) opened to sterile field. 13:17:36 DIAGNOSTIC Multipack 5Fr catheter set (GQ1527) opened to sterile field. 13:17:37 SHEATH 5FR Beasley (OVZ676) opened to sterile field. 13:17:37 EMERALD Guide Wire (233-645) opened to sterile field. 13:19:08 0.9% NaCl 100 ml/hr I.V. was administered by Keyona Worthy RN; used for procedure; 13:19:15 Oxygen 2 l/min etCO2 Nasal cannula was administered by Keyona Worthy RN; used for procedure; 13:19:21 Lidocaine 2% 20ml vial added to field was administered by Wilian Corbett MD; for local anesthetic; 13:19:25 Heparin Flush Bag (1000units/500ml NS) 2 bags added to field was administered by Wilian Corbett MD; used for procedure; 13:19:39 Plavix 75 mg P.O. was administered by Keyona Worthy RN; for antiplatelet therapy; 13:49:27 Zero performed for pressure channel P1 13:50:47 --------ALL STOP TIME OUT------ 13:50:48 Final Timeout: patient, procedure, and site verified with staff and physician. All members of the team are in agreement. 13:50:50 Right groin site verified by team. 13:50:53 Fire Safety Assessment: A--An alcohol-based skin anteseptic being used preoperatively., C--Open oxygen or nitrous oxide is being used., D--An ESU, laser, or fiber-optic light is being used. 13:50:55 Physical assessment completed. ASA score P 2 - A patient with mild systemic disease as per Wilian Corbett MD. 13:51:03 3a) 45-59 Moderately reduced kidney function. 13:51:06 Maximum allowable contrast dose (3.7 X eGFR X 0.75)147 ml. 13:51:09 Sedation plan: IV Moderate Sedation Medication:Versed, Fentanyl 13:52:08 Procedure started. 13:52:09 Versed 2 mg I.V. was administered by Keyona Worthy RN; for sedation; 13:52:20 Dilaudid 1 mg I.V. was administered by Keyona Worthy RN; for sedation; 13:52:26 Local anesthetic to right femoral artery with Lidocaine 2% by Wilian Corbett MD.INITIAL ACCESS ONLY 13:53:48 A 5 Fr sheath was inserted into the Right Femoral artery 13:54:01 A MULTIPACK Pigtail 5 Fr catheter was advanced over the wire and used for Procedure. 13:54:04 LV gram done using HENRY 13:54:07 Injector settings: Ml/sec: 10, Volume: 20, 13:54:21 EF : 60 % 13:54:22 Catheter removed. 13:54:29 A MULTIPACK JL 4.0 5Fr catheter was advanced over the wire and used for Procedure. 13:55:09 Versed 2 mg I.V. was administered by Keyona Worthy RN; for sedation; 13:56:07 LCA angiography performed. 13:56:16 Catheter removed. 13:56:25 A MULTIPACK 3DRC 5Fr catheter was advanced over the wire and used for Procedure. 13:57:26 RCA angiography performed. 13:57:28 Catheter removed. 13:57:29 EXOSEAL 5Fr (EX500) opened to sterile field. 13:57:58 Sheath removed intact; hemostasis achieved with Exoseal to the Right Femoral artery. 13:58:04 Procedure ended.(Physican Out) 13:59:25 Fluoroscopy time 01.10 minutes. 13:59:29 Flurop Dose total: 248 13:59:29 Fluoroscopy dose: 248 mGy 13:59:37 Dose Area Product 85597 mGy/cm. 13:59:44 Cumulative Air Kerma 248mGy. 13:59:47 Contrast amount:Isovue 300 58ml. 13:59:49 Maximum allowable dose exceeded? No. 13:59:50 Sharps counted by scrub and verified by R.N. 13:59:53 Post-op/insertion site Right Femoral artery dressed using a 4 x 4 and Tegaderm. 13:59:56 Post-procedure physical assessment completed. ASA score P 2 - A patient with mild systemic disease as per Wilian Corbett MD. 13:59:59 Post procedure rhythm: sinus rhythm 14:00:02 Estimated blood loss: 5 ml 14:00:03 Post procedure instruction explained to patient.Patient verbalizes understanding. 14:00:03 Patient needs reinforcement of post procedure teaching. 14:00:29 Procedure and supply charges have been captured, reviewed, submitted and are correct. 14:00:31 Procedure Complication : No complications 14:00:34 Vital chart was stopped 14:00:35 See physician's report for complete and final results. 14:00:38 Report given to Pre/Post Procedure Room. 14:00:40 Patient transfered to Pre/Post Procedure Room with Bed. 14:00:44 Procedure ended. 14:00:44 Full Disclosure recording stopped 14:01:59 End room use (Document Last) 14:58:32 Versed 2 mg I.V. was administered by Keyona Worthy RN; for sedation; Device Usage Item Name Manufacture Quantity Catalog Hospital Part Current Minimal L ot# / Number Charge Number Stock Stock Serial# Code Tegaderm 4 3M 1 1626W [id number] [id number] 270375 5 x 4 (1626W) ACIST Acist 1 14628 527069 766506 154086 5 Manifold Medical (84459) Systems Inc ACIST Hand Acist 1 70933 907546 376707 717805 5 Control Medical (17594) Systems Inc ACIST Acist 1 57715 495360 672452 049553 20 Syringe Medical (69823) Systems Inc Bag Microtek 1 2001S 418706 21270 359166 5 Decanter Medical Inc. () Medline Medline 1 [id number] 339511 07341 961014 5 Cath Pack ([id number]) DIAGNOSTIC Cardinal 1 KE0085 316894 77988 880089 30 Multipack Health 5Fr catheter set (BV9644) SHEATH 5FR Terumo 1 URT113 313457 560026 820958 5 Beasley (QJM619) EMERALD Cardinal 1 502-455 184686 345497 381717 5 Guide Wire Health (502-455) MULTIPACK Cardinal 1 551048 5 Pigtail 5 Health Fr catheter MULTIPACK Cardinal 1 691556 5 JL 4.0 5Fr Health catheter MULTIPACK Cardinal 1 563495 5 3DRC 5Fr Health catheter EXOSEAL 5Fr Cardinal 1 EX500 253095 467996 597179 10 (EX500) Health Signature Audit [place] Stage Time Signature Unsigned Intra-Procedure 01/01/2019 Sravanilila Zurita 2:05:19 PM RT(R) Signatures Performing Physician : Signature : Wilian Corbett MD Date : Time : Monitor : Sravani Zurita Signature : RT Date : Time : Nurse : Keyona Worthy RN Signature : Date : Time : [address] [place] [address]
[~2018-12-31 18:36] MED LIST changes: +PHENERGAN25 M1
[2018-12-31 19:13] LABS: BASOPHILS 0.2 % (0-2); EOSINOPHILS 1.1 % (0-7); HEMATOCRIT 45.2 % (36.0-48.0); HEMOGLOBIN 15.4 g/dL (12-16); IMMATURE GRANULOCYTES 0.2 % (0-5); LYMPHOCYTES 25.2 % (15-50); MCH 29.2 pg (26.0-34.0); MCHC 34.1 g/dL (31.0-37.0); MCV 85.6 fL (80.0-100.0); MEAN PLATELET VOLUME 10.1 fL (7.4-10.4); MONOCYTES 4.8 % (2-11); NEUTROPHILS 68.5 % (40-80); PLATELET COUNT 195 10x3/uL (130-400); RBC 5.28 10x6/uL (4.00-5.40); RDW 16.1 % (11.5-14.5); WBC 10.3 10x3/uL (4.8-10.8)
[2018-12-31 19:22] LABS: APTT 27.2 SECONDS (22.8-39.4); INR 0.97 (0.85-1.17); PROTIME 12.4 SECONDS (11.6-15.0)
--- NOTE | 2018-12-31 19:27 | NUR ---
FIRST NITRO ADMINISTERED AT THIS TIME. CP 01/16.
--- NOTE | 2018-12-31 19:39 | NUR ---
NO CHANGE IN PAIN 01/16. SECOND NITRO ADMINISTERED.
[2018-12-31 19:43] LABS: ALBUMIN 4.2 g/dL (3.4-5.0); ALKALINE PHOSPHATASE 100 U/L (46-116); ALT (SGPT) 16 U/L (10-68); BILIRUBIN - TOTAL 0.72 mg/dL (0.2-1.3); CALC OSMOLALITY 281 mosm/kg (275-300); CALCIUM 9.4 mg/dL (8.5-10.1); CARBON DIOXIDE 29.3 mmol/L (21.0-32.0); CHLORIDE - SERUM 103 mmol/L (98-107); GLUCOSE 108 mg/dL (74-106); SODIUM 141 mmol/L (136-145); UREA NITROGEN 12 mg/dL (7-18); eGFR NON AFRICAN AMERICAN 59 mL/min (90-120)
[2018-12-31 19:52] VITALS: BP 139/82
[2018-12-31 19:52] LABS: CKMB 1.2 U/L (0.0-3.6); CREATINE KINASE 87 UL (21-215); MAGNESIUM - SERUM 1.9 mg/dL (1.8-2.4)
[2018-12-31 19:53] LABS: TROPONIN-I < 0.017 ng/mL (0.000-0.060)
--- NOTE | 2018-12-31 19:56 | NUR ---
CHEST PAIN 7/10. THIRD NITRO ADMINISTERED.
[2018-12-31 20:12] VITALS: BP 116/77
[2018-12-31 21:17] VITALS: BP 125/66
[2018-12-31 22:45] LABS: CREATINE KINASE 68 UL (21-215); TROPONIN-I < 0.017 ng/mL (0.000-0.060)
--- NOTE | 2018-12-31 23:10 | NUR ---
PT ARRIVED TO ROOM 2115 PT IS AAO. UP AD ROHAN WITH STEADY GAIT. PT HAS A 20G LEFT HAND WITH NS INFUSING. PT STATES SHE HAS BEEN COMPLAINING OF A HEADACHE AND ASKED IF AN ORDER WAS PUT IN FOR SOMETHING BESIDES TYLENOL. NURSE INFORMED PT NO, NURSE WILL HAVE TO PAGE DOCTOR. VERIFIED ALLERGYS. PT STATES DILAUDID IS WHAT WORKS FOR PAIN. PLACED PT ON MONITOR. [employer]TAIN [employer] GETTING VITALS AND WEIGHT. FAMILY AT BEDSIDE. WILL CPOC
--- NOTE | 2018-12-31 23:13 | NUR ---
PAGED DR STALLINGS
--- NOTE | 2018-12-31 23:14 | NUR ---
SPOKE WITH DR STALLINGS REGARDING PAIN. OBTAINED AN ORDER FOR NORCO 10 MG Q4 HOURS PRN READ BACK ORDER TO CONFIRM.
--- NOTE | 2018-12-31 23:21 | NUR ---
NORCO GIVEN FOR 8/10 PAIN IN HEAD.
[2019-01-01 00:33] VITALS: BP 113/70; BMI 26.3
--- NOTE | 2019-01-01 01:18 | NUR ---
PT RESTING IN BED. FAMILY AT BED SIDE. NOURISHMENT REMOVED FROM BED SIDE. PT VERBALIZED UNDERSTANDING OF NPO UNTIL SEEN BY DR. STALLINGS IN MORNING FOR POSSIBLE HEART CATH. PT HAS NO S/S OF DISTRESS. BED LOW AND CALL LIGHT IN REACH. NPO SIGN HANGING ON DOOR. WILL CPOC
[2019-01-01 04:30] VITALS: BP 102/66
[2019-01-01 04:59] LABS: BASOPHILS 0.5 % (0-2); EOSINOPHILS 1.2 % (0-7); HEMATOCRIT 40.1 % (36.0-48.0); HEMOGLOBIN 13.2 g/dL (12-16); IMMATURE GRANULOCYTES 0.1 % (0-5); LYMPHOCYTES 33.3 % (15-50); MCH 28.4 pg (26.0-34.0); MCHC 32.9 g/dL (31.0-37.0); MCV 86.4 fL (80.0-100.0); MEAN PLATELET VOLUME 10.3 fL (7.4-10.4); MONOCYTES 6.8 % (2-11); NEUTROPHILS 58.1 % (40-80); PLATELET COUNT 186 10x3/uL (130-400); RBC 4.64 10x6/uL (4.00-5.40); RDW 16.3 % (11.5-14.5)
[2019-01-01 05:13] LABS: WBC 7.5 10x3/uL (4.8-10.8)
[2019-01-01 06:02] LABS: ALBUMIN 3.5 g/dL (3.4-5.0); ALKALINE PHOSPHATASE 79 U/L (46-116); ALT (SGPT) 17 U/L (10-68); CALC OSMOLALITY 281 mosm/kg (275-300); CALCIUM 8.6 mg/dL (8.5-10.1); CARBON DIOXIDE 29.5 mmol/L (21.0-32.0); CHLORIDE - SERUM 105 mmol/L (98-107); CKMB 0.9 U/L (0.0-3.6); CREATINE KINASE 65 UL (21-215); CREATININE - SERUM 1.1 mg/dL (0.6-1.3); GLUCOSE 90 mg/dL (74-106); POTASSIUM - SERUM 4.1 mmol/L (3.5-5.1); PROTEIN - SERUM 6.7 g/dL (6.4-8.2); SODIUM 141 mmol/L (136-145); UREA NITROGEN 14 mg/dL (7-18); eGFR NON AFRICAN AMERICAN 53 mL/min (90-120)
[2019-01-01 06:04] LABS: TROPONIN-I < 0.017 ng/mL (0.000-0.060)
[2019-01-01 07:50] VITALS: BP 115/69
--- NOTE | 2019-01-01 10:06 | NUR ---
CONSENTS SIGNED FOR [facility].
--- NOTE | 2019-01-01 11:14 | HP ---
PATIENT: MO ROBIN MEDICAL RECORD: [id number] ACCOUNT: [id number] LOCATION:[address] : 55 ADMISSION DATE: 12/31/18 PCP: RAMANA WILKINSON MD HISTORY AND PHYSICAL EXAMINATION DIAGNOSES: 1. Unstable angina. 2. Coronary artery disease. 3. Previous percutaneous transluminal coronary angioplasty stent times 7. 4. Smoking history. 5. Chronic obstructive pulmonary disease. 6. Hyperlipidemia. 7. Shortness of breath. 8. Dyspnea on exertion. HISTORY OF PRESENT ILLNESS: Mrs. Robin has extensive cardiac history, PTCA stent times 7 in the past, last being April of last year. She has been having her chest discomfort for approximately 1 week. Her chest discomfort radiates to the back. She has been having these episodes as well she has been more short of breath and having more dyspnea on exertion. The shortness of breath and dyspnea on exertion has progressed despite continuing her pulmonary medications. Yesterday, she had severe chest discomfort radiating to the back associated with nausea and vomiting. This as well has been associated with her previous angina prior to needing cardiac stenting. Her EKG is with nonspecific ST-T abnormalities, but no acute ST-T changes. She has continued to have her chest discomfort going to the back this morning. Her heart rate is in the 60s and systolic blood pressure is 100-110. PHYSICAL EXAMINATION: GENERAL APPEARANCE: Well-nourished, well-developed, appears stated age. Level of distress, comfortable. PSYCHIATRIC: Mental status, alert, normal affect. Orientation, oriented to time, place and person. EYES: Lids and conjunctiva, noninjected. No discharge, no pallor. ENT: Lips, teeth, gums, normal dentition. Oropharynx, no cyanosis, no pallor. NECK: Carotid arteries, bilateral normal upstroke, no bruits, no thrills. JUGULAR VEINS: No jugular venous pressure or distention. CERVICAL LYMPH NODES: Nontender, nonenlarged. THYROID: Not enlarged. Nontender. No nodules. LUNGS: Respiratory effort, unlabored. CHEST: Normal curvature. No thoracic deformity. No chest wall tenderness. Percussion, resonant. Auscultation, clear. No wheezes, no rales, no rhonchi. CARDIOVASCULAR: Precordial exam, nondisplaced. No heaves or pericardial thrills. Rate and rhythm, regular. Heart sounds, normal S1, normal S2. No S3, no gallop, no rub. Systolic murmur, not heard. Diastolic murmur, not heard. EXTREMITIES: No cyanosis, no edema. Peripheral pulses, full and equal in all extremities, except as noted. No bruits appreciated. ABDOMEN: Soft, nondistended. Normal aorta. No bruit. Nontender. No masses. Liver, nontender, no hepatomegaly. Spleen, nontender, no splenomegaly. MUSCULOSKELETAL: No joint tenderness. No joint swelling. No erythema. NEUROLOGICAL: Normal gait, normal strength, normal tone. SKIN: Warm and dry. OVERALL IMPRESSION: Class IV anginal symptomatology in a progressive fashion in a patient with a past history of coronary artery disease, multivessel cardiac HISTORY AND PHYSICAL [id number] MO ROBIN. Due to continued pain, we will proceed with coronary angiography. Further care depends upon findings of the angiography. TRANSINT:[id number] Voice Confirmation ID: [id number] DOCUMENT ID: [id number] MARIANA STALLINGS MD at 1114 CC: [id number] DICTATION DATE: 01/01/19 0953 PULLMAN CONDUCTOR: 01/01/19 1051 ADM IN [facility] [address] [place] [address]
[2019-01-01 11:22] LABS: CKMB 1.1 U/L (0.0-3.6); CREATINE KINASE 69 UL (21-215)
[2019-01-01 11:27] LABS: TROPONIN-I < 0.017 ng/mL (0.000-0.060)
[2019-01-01 12:20] VITALS: BP 119/74
--- NOTE | 2019-01-01 13:14 | NUR ---
PRE-OPS GIVEN. TO LANCE CREWMEMBER/MLRS SERGEANT BY BED.
[2019-01-01 13:20] VITALS: Ht 175.3 cm; Wt 80.7 kg
--- NOTE | 2019-01-01 14:13 | NUR ---
PT ARRIVED BY STRETCHER. PLACED ON MONITOR. ASSESSMENT COMPLETED. FAMILY AT BEDSIDE. PT INSTRUCTED TO KEEP HEAD FLAT ON PILLOW AND RIGHT LEG STRAIGHT.
--- NOTE | 2019-01-01 14:30 | NUR ---
RIGHT GROIN DRESSING C/D/I. NO S/S OF HEMATOMA NOTED. VSS. FAMILY AT BEDSIDE.
--- NOTE | 2019-01-01 14:45 | OP ---
PATIENT NAME: MO CLEMENT MEDICAL RECORD: [id number] :55 [facility] ADMISSION DATE:12/31/18 SURGEON: MARIANA STALLINGS MD DATE OF OPERATION: 01/01/2019 PROCEDURES: 1. Left heart catheterization. 2. Selective coronary angiography. 3. Left ventriculogram. INDICATION: Angina, coronary artery disease, and multivessel PTCA stent in the past. PROCEDURE IN DETAIL: After informed consent was obtained and after a detailed description of risks, benefits as well as alternative therapies, the patient elected to proceed with angiogram and heart catheterization. The right femoral area was prepped and draped in normal sterile fashion. The right femoral artery was cannulated via modified Seldinger technique with placement of 5-Ku[place]i sheath. All catheters exchanged through this sheath. FINDINGS: The left ventriculogram was performed in standard 30-degree HENRY view, reveals good cardiac wall motion, ejection fraction is 60%. SELECTIVE CORONARY ANGIOGRAPHY: 1. Left main is with no significant angiographic disease. 2. Left anterior descending has previously placed stents, these are widely patent with no significant restenosis. No disease elsewise throughout the LAD or its branches. 3. Left circumflex has previously placed stents. These are widely patent with no significant restenosis. No disease elsewise throughout the circumflex or its branches. 4. The right coronary artery has previously placed stents, these are widely patent with no significant restenosis. No disease elsewise throughout the RCA or its branches. OVERALL IMPRESSION: Wide patency of all the previously placed stents. No restenosis. No new disease. Continue medical management of the coronary artery disease and cardiac risk factors. TRANSINT:[id number] Voice Confirmation ID: [id number] DOCUMENT ID: [id number] MARIANA STALLINGS MD at 1445 CC: [id number] DICTATION DATE: 01/01/19 1404 POT TENDER: 01/01/19 1428 ADM IN [facility] [id number] [place] [address]
--- NOTE | 2019-01-01 15:00 | NUR ---
RIGHT GROIN DRESSING C/D/I. NO S/S OF HEMATOMA NOTED. HEAD OF BED INC TO 30 DEGREES. TOLERATED WELL. SET UP WITH SANDWICH AND DRINK. DENIES NAUSEA.
--- NOTE | 2019-01-01 15:25 | NUR ---
RIGHT GROIN DRESSING C/D/I. NO S/S OF HEMATOMA NOTED. VSS. PT'S O2 SAT 95% ON ROOM AIR. NO RESP DISTRESS NOTED. DENIES NAUSEA. DR. STALLINGS ROUNDED AND SPOKE WITH PT.
--- NOTE | 2019-01-01 15:40 | NUR ---
RIGHT GROIN DRESSING C/D/I. NO S/S/ OF HEMATOMA NOTED. VSS. LEFT HAND PIV D/C'D WITH CATH TIP INTACT. PT UP TO SIDE OF BED TO GET DRESSED. DISCUSSED DISCHARGE INSTRUCTIONS WITH PT AND PT'S FAMILY. THEY VOICED UNDERSTANDING. PT AMBULATED TO RESTROOM. VOIDED WITHOUT DIFFICULTY.
--- NOTE | 2019-01-01 16:00 | NUR ---
PT TAKEN OUT TO VEHICLE BY WHEELCHAIR. NO S/S OF DISTRESS NOTED. ALL BELONGINGS AND PAPERWORK IN HAND.
== END 2019-01-01 16:00 | disposition home or self-care (01) ==
LOC: D.ER 18:36 → OBSVTIME 21:51 → D.M2 21:51 → D.CLR 01-01 14:10
PROVIDERS: Family Medicine; ADMIT Internal Medicine Interventional Cardiology; ATTEND Internal Medicine Interventional Cardiology
DX: I25.110 Atherosclerotic heart disease of native coronary artery with unstable angina pectoris (principal); Z95.5 Presence of coronary angioplasty implant and graft; J44.9 Chronic obstructive pulmonary disease, unspecified; E78.5 Hyperlipidemia, unspecified; R06.02 Shortness of breath; Z87.891 Personal history of nicotine dependence